=== PATIENT | male | born 1945 | race American Indian/Alaskan Native ===

== ENCOUNTER 2018-02-16 11:09 | Inpatient (IN) | payer MEDICARE, OTHER ==
[~2018-02-16] VITALS: Ht 170.2 cm; Wt 102.0 kg
[~2018-02-16 11:09] MED LIST: ACET-2119 PO; ALBU8.5H4 IH; ASPI81TA52 PO; CALC300T4 PO; CARV25TA PO; CHOL400T57 PO; CLOP75TA35 PO; DIO80T PO; FURO20TA4 PO; GABA-341 PO; HYDR-565 PO; INSU100C4 SQ; LANTUS SUBCUT; MAGN400T6 PO; MULT1TAB74 PO; PANT-47 PO; ROPI1TAB4 PO
[2018-02-16 12:16] LABS: BASOPHILS % (AUTO) 0.2 % (0-1); EOSINOPHILS # (AUTO) 0.4 X10'3 (0-0.9); EOSINOPHILS % (AUTO) 4.7 % (0-6); HEMATOCRIT 33.7 % (42.0-52.0); LYMPHOCYTES # (AUTO) 0.8 X10'3 (1.1-4.8); MEAN CORPUSCULAR HEMOGLOBIN 30.3 PG (27.0-31.0); MEAN CORPUSCULAR HGB CONC 32.6 % (33.0-36.5); MEAN CORPUSCULAR VOLUME 93.1 FL (78-98); MEAN PLATELET VOLUME 9.5 FL (7.4-10.4); MONOCYTES # (AUTO) 0.6 X10'3 (0-0.9); MONOCYTES % (AUTO) 7.1 % (2-12); NEUTROPHILS # (AUTO) 6.2 X10'3 (1.8-7.7); PLATELET COUNT 160 X10'3 (140-440); RED BLOOD COUNT 3.61 X10'6 (4.70-6.10); RED CELL DISTRIBUTION WIDTH 17.4 % (11.5-14.5); WHITE BLOOD COUNT 7.9 X10'3 (4.5-11.0)
[2018-02-16 12:28] LABS: INR 1.1 INR; PARTIAL THROMBOPLASTIN TIME 32 SECONDS (22-32); PROTHROMBIN TIME 11.6 SECONDS (9.0-12.0)
[2018-02-16 12:33] LABS: ALANINE AMINOTRANSFERASE 19 U/L (12-78); ALBUMIN 2.6 G/DL (3.4-5.0); ALBUMIN/GLOBULIN RATIO 0.6 (1.1-1.5); ALKALINE PHOSPHATASE 125 IU/L (46-116); ANION GAP 11 (8-16); ASPARTATE AMINO TRANSFERASE 10 U/L (10-37); BILIRUBIN,TOTAL 0.6 MG/DL (0.1-1.0); BLOOD UREA NITROGEN 59 MG/DL (7-18); CALCIUM 8.6 MG/DL (8.5-10.1); CHLORIDE 97 MMOL/L (99-107); CREATININE 5.38 MG/DL (0.60-1.10); GLUCOSE 390 MG/DL (70-104); POTASSIUM 3.7 MMOL/L (3.5-5.1); SODIUM 135 MMOL/L (135-145); TOTAL CARBON DIOXIDE 26.8 MMOL/L (24-32); eGFR 11 ML/MIN
[2018-02-16] MEDS ORDERED: HYDROcodone/acetaminophen 5mg/325mg tablet PO PRN (14:45)
[2018-02-16] MEDS ORDERED: ondansetron/PF 4mg/2ml inj IV PRN (14:45)
[2018-02-16] MEDS ORDERED: morphine 4 MG/ML inj SYRINge IV PRN ×2 (14:45)
[2018-02-16] MEDS ORDERED: acetaminophen 325mg tablet PO PRN (14:45)
[2018-02-16] MEDS ORDERED: dextrose ORAL solution 15 GM/59 ML bottle PO PRN ×2 (14:50)
[2018-02-16] MEDS ORDERED: dextrose 50%-water 50ml dispensing syringe IV PRN ×2 (14:50)
[2018-02-16] MEDS ORDERED: MESSAGE TO PHARMACY PO ONE (14:50)
[2018-02-16] MEDS ORDERED: glucagon, human recombinant 1mg kit SUBCUT PRN (14:50)
[2018-02-16] MEDS ORDERED: iohexol 350MG/ML 100ml bottle IV ONE (15:46)
[2018-02-16] MEDS ORDERED: iohexol 350 MG/ML 50ML vial IV ONE (15:46)
[2018-02-16] MEDS: piperacillin-tazo 2.25gm/50ml 50 ML IV SCH ×2 (17:47→19:11)
[2018-02-16] MEDS: insulin Lispro (HumaLOG) vial - multi-dose SQ SCH ×2 (18:02→22:09)
[2018-02-16 19:00] VITALS: BP 115/36
[2018-02-16] MEDS: docusate sod 100mg capsule PO SCH (19:11)
[2018-02-16] MEDS: heparin, porcine 5000 units/ml vial SQ SCH (19:11)
[2018-02-16] MEDS ORDERED: predniSONE 20 mg tablet PO ONE (21:00)
[2018-02-16] MEDS: insulin glargine (Lantus) pen - multi-dose SQ SCH (22:07)
[2018-02-16 23:00] VITALS: BP 105/29
[2018-02-17] MEDS: piperacillin-tazo 2.25gm/50ml 50 ML IV SCH ×4 (02:23→19:55)
[2018-02-17 03:00] VITALS: BP 125/34
[2018-02-17] MEDS ORDERED: predniSONE 20 mg tablet PO ONE ×2 (03:00→09:00)
[2018-02-17 05:04] LABS: BASOPHILS % (AUTO) 0 % (0-1); EOSINOPHILS % (AUTO) 0 % (0-6); HEMATOCRIT 33.1 % (42.0-52.0); HEMOGLOBIN 10.7 g/dl (14.0-17.9); LYMPHOCYTES # (AUTO) 0.4 X10'3 (1.1-4.8); LYMPHOCYTES % (AUTO) 5.2 % (21-51); MEAN CORPUSCULAR HEMOGLOBIN 29.9 PG (27.0-31.0); MEAN CORPUSCULAR HGB CONC 32.5 % (33.0-36.5); MEAN CORPUSCULAR VOLUME 92.2 FL (78-98); MEAN PLATELET VOLUME 9.6 FL (7.4-10.4); MONOCYTES # (AUTO) 0.1 X10'3 (0-0.9); MONOCYTES % (AUTO) 1.9 % (2-12); NEUTROPHILS # (AUTO) 6.8 X10'3 (1.8-7.7); NEUTROPHILS % (AUTO) 92.9 % (42-75); PLATELET COUNT 154 X10'3 (140-440); RED BLOOD COUNT 3.59 X10'6 (4.70-6.10); WHITE BLOOD COUNT 7.3 X10'3 (4.5-11.0)
[2018-02-17 05:42] LABS: ALANINE AMINOTRANSFERASE 19 U/L (12-78); ALBUMIN 2.5 G/DL (3.4-5.0); ALBUMIN/GLOBULIN RATIO 0.6 (1.1-1.5); ALKALINE PHOSPHATASE 108 IU/L (46-116); ANION GAP 15 (8-16); ASPARTATE AMINO TRANSFERASE 14 U/L (10-37); BILIRUBIN,TOTAL 0.5 MG/DL (0.1-1.0); BLOOD UREA NITROGEN 70 MG/DL (7-18); BUN/CREATININE RATIO 11.5 (5.4-32.0); CALCIUM 8.6 MG/DL (8.5-10.1); CHLORIDE 97 MMOL/L (99-107); GLUCOSE 200 MG/DL (70-104); PHOSPHORUS 3.6 MG/DL (2.3-4.5); POTASSIUM 3.8 MMOL/L (3.5-5.1); SODIUM 135 MMOL/L (135-145); TOTAL CARBON DIOXIDE 23.2 MMOL/L (24-32); TOTAL PROTEIN 6.9 G/DL (6.4-8.2); eGFR 9 ML/MIN
[2018-02-17 06:00] VITALS: BP 122/47
[2018-02-17] MEDS: docusate sod 100mg capsule PO SCH ×2 (06:51→19:56)
[2018-02-17] MEDS: heparin, porcine 5000 units/ml vial SQ SCH ×2 (07:12→19:55)
[2018-02-17] MEDS ORDERED: normal saline 1000ml 250 ML IV PRN (08:57)
[2018-02-17] MEDS ORDERED: diphenhydrAMINE 25mg capsule PO ONE (09:00)
[2018-02-17] MEDS ORDERED: heparin 1,000 units/ml 10ml inj IV ONE (09:00)
[2018-02-17] MEDS ORDERED: LIDOcaine 1% (10mg/ml) 2ml vial SQ ONE (09:00)
[2018-02-17] MEDS ORDERED: epoetin 20,000 units/ml inj IV ONE (09:00)
[2018-02-17] MEDS: insulin Lispro (HumaLOG) vial - multi-dose SQ SCH ×4 (09:33→23:02)
[2018-02-17 11:00] VITALS: BP 116/49
[2018-02-17 15:00] VITALS: BP 131/54
[2018-02-17 19:00] VITALS: BP 113/63
[2018-02-17] MEDS: lactobacillus rhamnosus 10,000 MMU CELLS/CAPSULE PO SCH (19:55)
[2018-02-17 23:00] VITALS: BP 125/32
[2018-02-17] MEDS: insulin glargine (Lantus) pen - multi-dose SQ SCH (23:01)
[2018-02-18] VITALS (7 sets, daily range): BP systolic 85–136; BP diastolic 26–72
[2018-02-18] MEDS: piperacillin-tazo 2.25gm/50ml 50 ML IV SCH ×4 (01:55→20:04)
[2018-02-18 05:18] LABS: BASOPHILS % (AUTO) 0.1 % (0-1); EOSINOPHILS # (AUTO) 0.1 X10'3 (0-0.9); EOSINOPHILS % (AUTO) 1.2 % (0-6); HEMATOCRIT 36.7 % (42.0-52.0); LYMPHOCYTES # (AUTO) 0.8 X10'3 (1.1-4.8); MEAN CORPUSCULAR HEMOGLOBIN 30.4 PG (27.0-31.0); MEAN CORPUSCULAR HGB CONC 32.7 % (33.0-36.5); MEAN CORPUSCULAR VOLUME 92.9 FL (78-98); MEAN PLATELET VOLUME 9.8 FL (7.4-10.4); MONOCYTES # (AUTO) 0.6 X10'3 (0-0.9); MONOCYTES % (AUTO) 7.7 % (2-12); NEUTROPHILS # (AUTO) 6.6 X10'3 (1.8-7.7); PLATELET COUNT 161 X10'3 (140-440); RED BLOOD COUNT 3.95 X10'6 (4.70-6.10); RED CELL DISTRIBUTION WIDTH 17.9 % (11.5-14.5); WHITE BLOOD COUNT 8.1 X10'3 (4.5-11.0)
[2018-02-18 05:51] LABS: ALANINE AMINOTRANSFERASE 25 U/L (12-78); ALBUMIN 2.5 G/DL (3.4-5.0); ALBUMIN/GLOBULIN RATIO 0.6 (1.1-1.5); ALKALINE PHOSPHATASE 104 IU/L (46-116); ANION GAP 13 (8-16); ASPARTATE AMINO TRANSFERASE 16 U/L (10-37); BILIRUBIN,TOTAL 0.5 MG/DL (0.1-1.0); BLOOD UREA NITROGEN 45 MG/DL (7-18); BUN/CREATININE RATIO 10.2 (5.4-32.0); CALCIUM 8.7 MG/DL (8.5-10.1); CHLORIDE 96 MMOL/L (99-107); CREATININE 4.42 MG/DL (0.60-1.10); GLUCOSE 316 MG/DL (70-104); MAGNESIUM 1.9 MG/DL (1.5-2.4); PHOSPHORUS 3.7 MG/DL (2.3-4.5); POTASSIUM 3.9 MMOL/L (3.5-5.1); SODIUM 134 MMOL/L (135-145); eGFR 13 ML/MIN
[2018-02-18] MEDS: heparin, porcine 5000 units/ml vial SQ SCH (07:57)
[2018-02-18] MEDS: docusate sod 100mg capsule PO SCH ×2 (08:00→20:00)
[2018-02-18] MEDS: insulin Lispro (HumaLOG) vial - multi-dose SQ SCH ×3 (08:01→18:47)
[2018-02-18] MEDS: lactobacillus rhamnosus 10,000 MMU CELLS/CAPSULE PO SCH ×2 (08:09→20:04)
[2018-02-18] MEDS: insulin glargine (Lantus) pen - multi-dose SQ SCH (21:44)
[2018-02-19] VITALS (11 sets, daily range): BP systolic 129–157; BP diastolic 34–118
[2018-02-19] MEDS: piperacillin-tazo 2.25gm/50ml 50 ML IV SCH ×4 (02:11→19:08)
[2018-02-19 05:26] LABS: BASOPHILS % (AUTO) 0.3 % (0-1); EOSINOPHILS # (AUTO) 0.5 X10'3 (0-0.9); EOSINOPHILS % (AUTO) 6.8 % (0-6); HEMATOCRIT 36.3 % (42.0-52.0); HEMOGLOBIN 11.7 g/dl (14.0-17.9); LYMPHOCYTES # (AUTO) 1.3 X10'3 (1.1-4.8); LYMPHOCYTES % (AUTO) 18.5 % (21-51); MEAN CORPUSCULAR HGB CONC 32.3 % (33.0-36.5); MEAN CORPUSCULAR VOLUME 92.8 FL (78-98); MEAN PLATELET VOLUME 9.4 FL (7.4-10.4); MONOCYTES # (AUTO) 0.7 X10'3 (0-0.9); MONOCYTES % (AUTO) 9.9 % (2-12); NEUTROPHILS # (AUTO) 4.6 X10'3 (1.8-7.7); NEUTROPHILS % (AUTO) 64.5 % (42-75); PLATELET COUNT 164 X10'3 (140-440); RED BLOOD COUNT 3.91 X10'6 (4.70-6.10); RED CELL DISTRIBUTION WIDTH 18.2 % (11.5-14.5); WHITE BLOOD COUNT 7.1 X10'3 (4.5-11.0)
[2018-02-19 05:43] LABS: ALANINE AMINOTRANSFERASE 25 U/L (12-78); ALBUMIN 2.3 G/DL (3.4-5.0); ALBUMIN/GLOBULIN RATIO 0.6 (1.1-1.5); ALKALINE PHOSPHATASE 101 IU/L (46-116); ANION GAP 11 (8-16); ASPARTATE AMINO TRANSFERASE 17 U/L (10-37); BILIRUBIN,TOTAL 0.5 MG/DL (0.1-1.0); BLOOD UREA NITROGEN 63 MG/DL (7-18); CALCIUM 8.1 MG/DL (8.5-10.1); CHLORIDE 98 MMOL/L (99-107); CREATININE 5.73 MG/DL (0.60-1.10); GLUCOSE 182 MG/DL (70-104); MAGNESIUM 2.1 MG/DL (1.5-2.4); PHOSPHORUS 5.1 MG/DL (2.3-4.5); POTASSIUM 3.7 MMOL/L (3.5-5.1); SODIUM 135 MMOL/L (135-145); TOTAL CARBON DIOXIDE 26.1 MMOL/L (24-32); TOTAL PROTEIN 6.4 G/DL (6.4-8.2); eGFR 10 ML/MIN
[2018-02-19] MEDS: docusate sod 100mg capsule PO SCH ×2 (08:00→19:17)
[2018-02-19] MEDS: lactobacillus rhamnosus 10,000 MMU CELLS/CAPSULE PO SCH ×2 (08:25→19:07)
[2018-02-19] MEDS: insulin Lispro (HumaLOG) vial - multi-dose SQ SCH ×2 (08:36→19:15)
[2018-02-19] MEDS ORDERED: fentaNYL/PF 50MCG/1 ML 2ML syringe IV PRN (09:25)
[2018-02-19] MEDS ORDERED: heparin 1,000 UNITS/NS 500ml 500 ML ICATH ONE (09:25)
[2018-02-19] MEDS ORDERED: LIDOcaine 1%/PF 5ML 10 MG/ML VIAL SQ ONE (09:25)
[2018-02-19] MEDS ORDERED: midazolam 2 mg/2 ml injection IV PRN (09:25)
[2018-02-19] MEDS ORDERED: diphenhydrAMINE 50 mg/ml inj IV ONE (09:25)
[2018-02-19 09:26] LABS: PLATELET ESTIMATE NORMAL
[2018-02-19 09:27] LABS: ANISOCYTOSIS 2+; ELLIPTOCYTES 1+; MICROCYTOSIS 1+; POLYCHROMASIA 1+
[2018-02-19] MEDS: hydrocortisone sod succ/PF 100mg/2ml inj. IV SCH (09:36)
[2018-02-19] MEDS ORDERED: LIDOcaine 1%/PF 5ML 10 MG/ML VIAL ONE (09:56)
[2018-02-19] MEDS ORDERED: iohexol 300mg/ml 100ml inj. ONE (09:56)
[2018-02-19] MEDS ORDERED: [UNRECOGNIZED DRUG - REMARK] SQ NR (10:00)
[2018-02-19] MEDS ORDERED: midazolam 2 mg/2 ml injection ONE (10:32)
[2018-02-19] MEDS ORDERED: fentaNYL/PF 50MCG/1 ML 2ML syringe ONE (10:33)
[2018-02-19] MEDS ORDERED: heparin 1,000 UNITS/NS 500ml 500 ML ONE (10:50)
[2018-02-19] MEDS: insulin glargine (Lantus) pen - multi-dose SQ SCH (21:49)
[2018-02-20] MEDS: piperacillin-tazo 2.25gm/50ml 50 ML IV SCH ×4 (01:33→20:20)
[2018-02-20 03:00] VITALS: BP 98/53
[2018-02-20 05:30] LABS: BASOPHILS % (AUTO) 0.4 % (0-1); EOSINOPHILS # (AUTO) 0.3 X10'3 (0-0.9); EOSINOPHILS % (AUTO) 3.9 % (0-6); HEMATOCRIT 34.8 % (42.0-52.0); HEMOGLOBIN 11.4 g/dl (14.0-17.9); LYMPHOCYTES # (AUTO) 1.1 X10'3 (1.1-4.8); LYMPHOCYTES % (AUTO) 13.9 % (21-51); MEAN CORPUSCULAR HEMOGLOBIN 30.1 PG (27.0-31.0); MEAN CORPUSCULAR HGB CONC 32.8 % (33.0-36.5); MEAN CORPUSCULAR VOLUME 91.8 FL (78-98); MEAN PLATELET VOLUME 9.6 FL (7.4-10.4); MONOCYTES # (AUTO) 0.8 X10'3 (0-0.9); MONOCYTES % (AUTO) 10.2 % (2-12); NEUTROPHILS # (AUTO) 5.4 X10'3 (1.8-7.7); NEUTROPHILS % (AUTO) 71.6 % (42-75); PLATELET COUNT 158 X10'3 (140-440); RED CELL DISTRIBUTION WIDTH 17.6 % (11.5-14.5); WHITE BLOOD COUNT 7.6 X10'3 (4.5-11.0)
[2018-02-20 05:55] LABS: ALANINE AMINOTRANSFERASE 24 U/L (12-78); ALBUMIN 2.2 G/DL (3.4-5.0); ALBUMIN/GLOBULIN RATIO 0.6 (1.1-1.5); ALKALINE PHOSPHATASE 100 IU/L (46-116); ANION GAP 15 (8-16); ASPARTATE AMINO TRANSFERASE 16 U/L (10-37); BILIRUBIN,TOTAL 0.5 MG/DL (0.1-1.0); BLOOD UREA NITROGEN 81 MG/DL (7-18); BUN/CREATININE RATIO 11.2 (5.4-32.0); CALCIUM 7.5 MG/DL (8.5-10.1); CHLORIDE 95 MMOL/L (99-107); CREATININE 7.22 MG/DL (0.60-1.10); GLUCOSE 333 MG/DL (70-104); MAGNESIUM 1.9 MG/DL (1.5-2.4); POTASSIUM 3.5 MMOL/L (3.5-5.1); SODIUM 134 MMOL/L (135-145); TOTAL CARBON DIOXIDE 23.8 MMOL/L (24-32); TOTAL PROTEIN 6.2 G/DL (6.4-8.2); eGFR 8 ML/MIN
[2018-02-20 06:57] VITALS: BP 119/49
[2018-02-20] MEDS ORDERED: heparin 1,000 units/ml 10ml inj IV ONE (08:00)
[2018-02-20] MEDS ORDERED: normal saline 1000ml 250 ML IV PRN (08:00)
[2018-02-20] MEDS: docusate sod 100mg capsule PO SCH ×2 (08:00→20:00)
[2018-02-20] MEDS ORDERED: LIDOcaine 1% (10mg/ml) 2ml vial SQ ONE (08:00)
[2018-02-20] MEDS: lactobacillus rhamnosus 10,000 MMU CELLS/CAPSULE PO SCH ×2 (08:01→20:19)
[2018-02-20] MEDS: insulin Lispro (HumaLOG) vial - multi-dose SQ SCH (08:06)
[2018-02-20] MEDS: hydrocortisone sod succ/PF 100mg/2ml inj. IV SCH (09:25)
[2018-02-20 11:00] VITALS: BP 104/35
[2018-02-20] MEDS ORDERED: valsartan 80mg tablet PO SCH (13:05)
[2018-02-20] MEDS ORDERED: acetaminophen 325mg tablet PO PRN (13:05)
[2018-02-20] MEDS ORDERED: calcium carbonate 500mg chew tablet PO PRN (13:05)
[2018-02-20] MEDS: aspirin 81mg tablet.DR PO SCH (13:21)
[2018-02-20] MEDS: cholecalciferol (vitamin D) 400 unit tablet PO SCH (13:21)
[2018-02-20] MEDS: clopidogrel 75mg tablet PO SCH (13:22)
[2018-02-20] MEDS ORDERED: albuterol 2.5 MG/3 ML nebule NEB PRN (13:25)
[2018-02-20] MEDS: losartan 50mg tablet PO SCH (14:23)
[2018-02-20] MEDS: magnesium oxide 400mg tablet PO SCH (16:52)
[2018-02-20 17:00] VITALS: BP 134/42
[2018-02-20] MEDS ORDERED: HYDROcodone/acetaminophen 10/325mg tab PO SCH (17:00)
[2018-02-20] MEDS ORDERED: non-formulary drug (Insulin Aspart (Novolog) 10 UNITS) SQ SCH (18:00)
[2018-02-20 19:00] VITALS: BP 125/35
[2018-02-20] MEDS: gabapentin 100mg capsule PO SCH (20:18)
[2018-02-20] MEDS: furosemide 20MG tablet PO SCH (20:18)
[2018-02-20] MEDS: ROPINIRole 1mg tablet PO SCH (20:19)
[2018-02-20] MEDS: carVEDilol 12.5mg tablet PO SCH (20:38)
[2018-02-20] MEDS ORDERED: insulin glargine (Lantus) pen - multi-dose SQ SCH (21:00)
[2018-02-20] MEDS: insulin glargine (Lantus) pen - multi-dose SQ SCH (21:49)
[2018-02-20 23:00] VITALS: BP 101/77
[2018-02-21] MEDS: magnesium oxide 400mg tablet PO SCH ×3 (00:05→16:00)
[2018-02-21] MEDS: piperacillin-tazo 2.25gm/50ml 50 ML IV SCH ×4 (02:21→20:18)
[2018-02-21 03:00] VITALS: BP 97/61
[2018-02-21 05:04] LABS: BASOPHILS # (AUTO) 0.1 X10'3 (0-0.2); BASOPHILS % (AUTO) 0.6 % (0-1); EOSINOPHILS # (AUTO) 0.8 X10'3 (0-0.9); HEMATOCRIT 35.5 % (42.0-52.0); LYMPHOCYTES # (AUTO) 1.5 X10'3 (1.1-4.8); LYMPHOCYTES % (AUTO) 16.7 % (21-51); MEAN CORPUSCULAR HEMOGLOBIN 31.3 PG (27.0-31.0); MEAN CORPUSCULAR HGB CONC 33.8 % (33.0-36.5); MEAN CORPUSCULAR VOLUME 92.4 FL (78-98); MEAN PLATELET VOLUME 8.9 FL (7.4-10.4); MONOCYTES # (AUTO) 0.6 X10'3 (0-0.9); MONOCYTES % (AUTO) 7.1 % (2-12); NEUTROPHILS # (AUTO) 5.8 X10'3 (1.8-7.7); NEUTROPHILS % (AUTO) 66.6 % (42-75); PLATELET COUNT 159 X10'3 (140-440); RED BLOOD COUNT 3.85 X10'6 (4.70-6.10); RED CELL DISTRIBUTION WIDTH 18.3 % (11.5-14.5); WHITE BLOOD COUNT 8.7 X10'3 (4.5-11.0)
[2018-02-21 05:27] LABS: ALANINE AMINOTRANSFERASE 24 U/L (12-78); ALBUMIN 2.4 G/DL (3.4-5.0); ALBUMIN/GLOBULIN RATIO 0.5 (1.1-1.5); ALKALINE PHOSPHATASE 85 IU/L (46-116); ANION GAP 11 (8-16); ASPARTATE AMINO TRANSFERASE 14 U/L (10-37); BILIRUBIN,TOTAL 0.6 MG/DL (0.1-1.0); BLOOD UREA NITROGEN 47 MG/DL (7-18); CALCIUM 7.8 MG/DL (8.5-10.1); CHLORIDE 95 MMOL/L (99-107); CREATININE 5.22 MG/DL (0.60-1.10); GLUCOSE 204 MG/DL (70-104); MAGNESIUM 1.9 MG/DL (1.5-2.4); PHOSPHORUS 5.1 MG/DL (2.3-4.5); POTASSIUM 3.5 MMOL/L (3.5-5.1); SODIUM 134 MMOL/L (135-145); TOTAL CARBON DIOXIDE 27.6 MMOL/L (24-32); eGFR 11 ML/MIN
[2018-02-21 05:30] VITALS: BP 91/27
[2018-02-21 06:50] LABS: LARGE PLATELETS FEW; PLATELET ESTIMATE NORMAL
[2018-02-21] MEDS: losartan 50mg tablet PO SCH (08:00)
[2018-02-21] MEDS: carVEDilol 12.5mg tablet PO SCH ×2 (08:00→20:19)
[2018-02-21] MEDS: furosemide 20MG tablet PO SCH ×2 (08:00→20:19)
[2018-02-21] MEDS: lactobacillus rhamnosus 10,000 MMU CELLS/CAPSULE PO SCH ×2 (08:23→20:18)
[2018-02-21] MEDS: pantoprazole 40mg Tablet.DR PO SCH (08:23)
[2018-02-21] MEDS: clopidogrel 75mg tablet PO SCH (08:23)
[2018-02-21] MEDS: multivitamins, therapeutics tablet PO SCH (08:23)
[2018-02-21] MEDS: aspirin 81mg tablet.DR PO SCH (08:26)
[2018-02-21] MEDS: gabapentin 100mg capsule PO SCH ×3 (08:26→20:18)
[2018-02-21] MEDS: docusate sod 100mg capsule PO SCH ×2 (08:26→18:54)
[2018-02-21] MEDS: insulin Lispro (HumaLOG) vial - multi-dose SQ SCH ×3 (08:32→18:46)
[2018-02-21] MEDS: cholecalciferol (vitamin D) 400 unit tablet PO SCH (08:41)
[2018-02-21] MEDS: hydrocortisone sod succ/PF 100mg/2ml inj. IV SCH (09:25)
[2018-02-21 11:00] VITALS: BP 91/27
[2018-02-21 13:58] VITALS: BP 140/49
[2018-02-21 15:00] VITALS: BP 151/61
[2018-02-21] MEDS: ROPINIRole 1mg tablet PO SCH (20:19)
[2018-02-21] MEDS: insulin glargine (Lantus) pen - multi-dose SQ SCH (21:43)
[2018-02-22] MEDS: piperacillin-tazo 2.25gm/50ml 50 ML IV SCH ×4 (00:54→21:25)
[2018-02-22] MEDS: magnesium oxide 400mg tablet PO SCH ×3 (00:54→16:37)
[2018-02-22 06:57] VITALS: BP 99/53
[2018-02-22] MEDS: losartan 50mg tablet PO SCH (08:00)
[2018-02-22] MEDS: docusate sod 100mg capsule PO SCH ×2 (08:00→20:00)
[2018-02-22] MEDS: carVEDilol 12.5mg tablet PO SCH ×2 (08:00→21:27)
[2018-02-22] MEDS: furosemide 20MG tablet PO SCH ×2 (08:00→21:28)
[2018-02-22] MEDS: LIDOcaine 1% (10mg/ml) 2ml vial SQ ONE ×2 (08:00→08:54)
[2018-02-22] MEDS ORDERED: normal saline 1000ml 250 ML IV PRN (08:00)
[2018-02-22] MEDS ORDERED: heparin 1,000 units/ml 10ml inj IV ONE (08:00)
[2018-02-22] MEDS: multivitamins, therapeutics tablet PO SCH (08:51)
[2018-02-22] MEDS: gabapentin 100mg capsule PO SCH ×3 (08:51→21:28)
[2018-02-22] MEDS: emollient combination-Eucerin 250 ML LOTION TP SCH (08:51)
[2018-02-22] MEDS: cholecalciferol (vitamin D) 400 unit tablet PO SCH (08:52)
[2018-02-22] MEDS: aspirin 81mg tablet.DR PO SCH (08:53)
[2018-02-22] MEDS: lactobacillus rhamnosus 10,000 MMU CELLS/CAPSULE PO SCH ×2 (08:53→21:27)
[2018-02-22] MEDS: pantoprazole 40mg Tablet.DR PO SCH (08:53)
[2018-02-22] MEDS: clopidogrel 75mg tablet PO SCH (09:06)
[2018-02-22] MEDS: insulin Lispro (HumaLOG) vial - multi-dose SQ SCH ×3 (09:16→19:28)
[2018-02-22] MEDS: hydrocortisone sod succ/PF 100mg/2ml inj. IV SCH (09:25)
[2018-02-22 12:06] VITALS: BP 114/46
[2018-02-22 15:00] VITALS: BP 104/35
[2018-02-22 19:00] VITALS: BP 114/60
[2018-02-22] MEDS: ROPINIRole 1mg tablet PO SCH (21:27)
[2018-02-22] MEDS: insulin glargine (Lantus) pen - multi-dose SQ SCH (21:42)
[2018-02-22 23:00] VITALS: BP 129/52
[2018-02-23] MEDS: magnesium oxide 400mg tablet PO SCH ×3 (01:00→15:58)
[2018-02-23] MEDS: piperacillin-tazo 2.25gm/50ml 50 ML IV SCH ×4 (01:09→19:44)
[2018-02-23 03:00] VITALS: BP 108/48
[2018-02-23 05:29] LABS: BASOPHILS % (AUTO) 0.5 % (0-1); EOSINOPHILS # (AUTO) 0.6 X10'3 (0-0.9); EOSINOPHILS % (AUTO) 7.3 % (0-6); HEMATOCRIT 33.4 % (42.0-52.0); HEMOGLOBIN 10.9 g/dl (14.0-17.9); LYMPHOCYTES # (AUTO) 1.1 X10'3 (1.1-4.8); LYMPHOCYTES % (AUTO) 13.1 % (21-51); MEAN CORPUSCULAR HEMOGLOBIN 30.2 PG (27.0-31.0); MEAN CORPUSCULAR HGB CONC 32.6 % (33.0-36.5); MEAN CORPUSCULAR VOLUME 92.8 FL (78-98); MEAN PLATELET VOLUME 9.2 FL (7.4-10.4); MONOCYTES # (AUTO) 0.6 X10'3 (0-0.9); NEUTROPHILS # (AUTO) 5.8 X10'3 (1.8-7.7); NEUTROPHILS % (AUTO) 72.1 % (42-75); PLATELET COUNT 142 X10'3 (140-440); RED CELL DISTRIBUTION WIDTH 18.4 % (11.5-14.5); WHITE BLOOD COUNT 8.1 X10'3 (4.5-11.0)
[2018-02-23 05:36] LABS: ALBUMIN 2.2 G/DL (3.4-5.0); ANION GAP 7 (8-16); BLOOD UREA NITROGEN 35 MG/DL (7-18); BUN/CREATININE RATIO 7.7 (5.4-32.0); CALCIUM 7.8 MG/DL (8.5-10.1); CHLORIDE 96 MMOL/L (99-107); CREATININE 4.55 MG/DL (0.60-1.10); GLUCOSE 116 MG/DL (70-104); SODIUM 132 MMOL/L (135-145); TOTAL CARBON DIOXIDE 29.1 MMOL/L (24-32); eGFR 13 ML/MIN
[2018-02-23 06:00] VITALS: BP 107/61
[2018-02-23] MEDS: multivitamins, therapeutics tablet PO SCH (07:26)
[2018-02-23] MEDS: aspirin 81mg tablet.DR PO SCH (07:27)
[2018-02-23] MEDS: lactobacillus rhamnosus 10,000 MMU CELLS/CAPSULE PO SCH ×2 (07:27→19:43)
[2018-02-23] MEDS: clopidogrel 75mg tablet PO SCH (07:27)
[2018-02-23] MEDS: furosemide 20MG tablet PO SCH ×2 (07:27→19:45)
[2018-02-23] MEDS: pantoprazole 40mg Tablet.DR PO SCH (07:27)
[2018-02-23] MEDS: gabapentin 100mg capsule PO SCH ×3 (07:27→21:00)
[2018-02-23] MEDS: cholecalciferol (vitamin D) 400 unit tablet PO SCH (07:29)
[2018-02-23] MEDS: carVEDilol 12.5mg tablet PO SCH ×2 (07:29→19:45)
[2018-02-23] MEDS: emollient combination-Eucerin 250 ML LOTION TP SCH (07:30)
[2018-02-23] MEDS: docusate sod 100mg capsule PO SCH ×2 (08:00→19:44)
[2018-02-23] MEDS: insulin Lispro (HumaLOG) vial - multi-dose SQ SCH ×2 (08:38→13:30)
[2018-02-23 09:19] LABS: ANISOCYTOSIS 2+; PLATELET ESTIMATE NORMAL
[2018-02-23 09:20] LABS: ELLIPTOCYTES FEW; POIKILOCYTOSIS 1+
[2018-02-23] MEDS: losartan 50mg tablet PO SCH (09:28)
[2018-02-23 11:00] VITALS: BP 97/32
[2018-02-23 15:00] VITALS: BP 113/51
[2018-02-23 19:00] VITALS: BP 83/77
[2018-02-23] MEDS: insulin glargine (Lantus) pen - multi-dose SQ SCH (21:00)
[2018-02-23] MEDS: ROPINIRole 1mg tablet PO SCH (21:00)
[2018-02-23 23:00] VITALS: BP 85/49
[2018-02-24] MEDS: magnesium oxide 400mg tablet PO SCH ×3 (01:27→16:33)
[2018-02-24] MEDS: piperacillin-tazo 2.25gm/50ml 50 ML IV SCH ×4 (01:27→20:32)
[2018-02-24 03:00] VITALS: BP 101/52
[2018-02-24 06:00] VITALS: BP 103/52
[2018-02-24 07:21] LABS: BASOPHILS # (AUTO) 0.1 X10'3 (0-0.2); BASOPHILS % (AUTO) 1.3 % (0-1); EOSINOPHILS # (AUTO) 0.7 X10'3 (0-0.9); EOSINOPHILS % (AUTO) 8.1 % (0-6); HEMATOCRIT 32.3 % (42.0-52.0); HEMOGLOBIN 10.8 g/dl (14.0-17.9); LYMPHOCYTES # (AUTO) 1.1 X10'3 (1.1-4.8); LYMPHOCYTES % (AUTO) 13.7 % (21-51); MEAN CORPUSCULAR HEMOGLOBIN 30.9 PG (27.0-31.0); MEAN CORPUSCULAR HGB CONC 33.4 % (33.0-36.5); MEAN CORPUSCULAR VOLUME 92.5 FL (78-98); MEAN PLATELET VOLUME 9.3 FL (7.4-10.4); MONOCYTES # (AUTO) 0.5 X10'3 (0-0.9); MONOCYTES % (AUTO) 6.3 % (2-12); NEUTROPHILS # (AUTO) 5.7 X10'3 (1.8-7.7); NEUTROPHILS % (AUTO) 70.6 % (42-75); PLATELET COUNT 133 X10'3 (140-440); RED BLOOD COUNT 3.49 X10'6 (4.70-6.10); RED CELL DISTRIBUTION WIDTH 17.2 % (11.5-14.5); WHITE BLOOD COUNT 8.1 X10'3 (4.5-11.0)
[2018-02-24 07:29] LABS: ALBUMIN 2.1 G/DL (3.4-5.0); ANION GAP 10 (8-16); BLOOD UREA NITROGEN 48 MG/DL (7-18); BUN/CREATININE RATIO 8.2 (5.4-32.0); CALCIUM 7.7 MG/DL (8.5-10.1); CHLORIDE 92 MMOL/L (99-107); CREATININE 5.88 MG/DL (0.60-1.10); GLUCOSE 134 MG/DL (70-104); POTASSIUM 4.1 MMOL/L (3.5-5.1); SODIUM 128 MMOL/L (135-145); TOTAL CARBON DIOXIDE 26.4 MMOL/L (24-32); eGFR 10 ML/MIN
[2018-02-24] MEDS: pantoprazole 40mg Tablet.DR PO SCH (07:42)
[2018-02-24] MEDS: cholecalciferol (vitamin D) 400 unit tablet PO SCH (07:43)
[2018-02-24] MEDS: gabapentin 100mg capsule PO SCH ×3 (07:43→20:33)
[2018-02-24] MEDS: aspirin 81mg tablet.DR PO SCH (07:43)
[2018-02-24] MEDS: multivitamins, therapeutics tablet PO SCH (07:43)
[2018-02-24] MEDS: clopidogrel 75mg tablet PO SCH (07:43)
[2018-02-24] MEDS: lactobacillus rhamnosus 10,000 MMU CELLS/CAPSULE PO SCH ×2 (07:43→20:32)
[2018-02-24] MEDS: docusate sod 100mg capsule PO SCH ×2 (07:50→20:32)
[2018-02-24] MEDS: losartan 50mg tablet PO SCH (07:51)
[2018-02-24] MEDS: carVEDilol 12.5mg tablet PO SCH ×2 (07:51→20:32)
[2018-02-24] MEDS: furosemide 20MG tablet PO SCH ×2 (07:52→20:32)
[2018-02-24] MEDS ORDERED: LIDOcaine 1% (10mg/ml) 2ml vial SQ ONE (08:00)
[2018-02-24] MEDS ORDERED: normal saline 1000ml 250 ML IV PRN (08:00)
[2018-02-24] MEDS ORDERED: epoetin 20,000 units/ml inj IV ONE (08:00)
[2018-02-24] MEDS ORDERED: heparin 1,000 units/ml 10ml inj IV ONE (08:00)
[2018-02-24] MEDS: insulin Lispro (HumaLOG) vial - multi-dose SQ SCH ×4 (08:02→20:48)
[2018-02-24] MEDS ORDERED: albumin (human) 25% 100ml IV 100 ML IV PRN (09:40)
[2018-02-24] MEDS: emollient combination-Eucerin 250 ML LOTION TP SCH (09:48)
[2018-02-24 11:00] VITALS: BP 106/53
[2018-02-24 11:10] LABS: HBSAG SCREEN Negative (Negative)
[2018-02-24 15:00] VITALS: BP 118/64
[2018-02-24 19:00] VITALS: BP 106/58
[2018-02-24] MEDS: ROPINIRole 1mg tablet PO SCH (20:33)
[2018-02-24] MEDS: insulin glargine (Lantus) pen - multi-dose SQ SCH (20:42)
[2018-02-24 23:00] VITALS: BP 97/50
[2018-02-25] MEDS: piperacillin-tazo 2.25gm/50ml 50 ML IV SCH ×4 (02:45→19:55)
[2018-02-25 03:00] VITALS: BP 101/56
[2018-02-25 07:00] VITALS: BP 102/60
[2018-02-25] MEDS: cholecalciferol (vitamin D) 400 unit tablet PO SCH (07:27)
[2018-02-25] MEDS: multivitamins, therapeutics tablet PO SCH (07:28)
[2018-02-25] MEDS: pantoprazole 40mg Tablet.DR PO SCH (07:28)
[2018-02-25] MEDS: magnesium oxide 400mg tablet PO SCH ×3 (07:28→16:29)
[2018-02-25] MEDS: lactobacillus rhamnosus 10,000 MMU CELLS/CAPSULE PO SCH ×2 (07:28→19:57)
[2018-02-25] MEDS: carVEDilol 12.5mg tablet PO SCH ×2 (07:28→19:47)
[2018-02-25] MEDS: gabapentin 100mg capsule PO SCH ×3 (07:28→21:07)
[2018-02-25] MEDS: aspirin 81mg tablet.DR PO SCH (07:28)
[2018-02-25] MEDS: furosemide 20MG tablet PO SCH ×2 (07:29→19:47)
[2018-02-25] MEDS: losartan 50mg tablet PO SCH (07:29)
[2018-02-25] MEDS: docusate sod 100mg capsule PO SCH ×2 (07:29→20:00)
[2018-02-25] MEDS: clopidogrel 75mg tablet PO SCH (07:29)
[2018-02-25] MEDS: emollient combination-Eucerin 250 ML LOTION TP SCH (07:31)
[2018-02-25 07:38] LABS: BASOPHILS # (AUTO) 0.1 X10'3 (0-0.2); BASOPHILS % (AUTO) 1.6 % (0-1); EOSINOPHILS # (AUTO) 0.4 X10'3 (0-0.9); EOSINOPHILS % (AUTO) 4.8 % (0-6); HEMATOCRIT 32.2 % (42.0-52.0); HEMOGLOBIN 10.7 g/dl (14.0-17.9); LYMPHOCYTES # (AUTO) 0.9 X10'3 (1.1-4.8); LYMPHOCYTES % (AUTO) 11.4 % (21-51); MEAN CORPUSCULAR HEMOGLOBIN 30.8 PG (27.0-31.0); MEAN CORPUSCULAR HGB CONC 33.2 % (33.0-36.5); MEAN CORPUSCULAR VOLUME 92.6 FL (78-98); MONOCYTES # (AUTO) 0.7 X10'3 (0-0.9); MONOCYTES % (AUTO) 8.7 % (2-12); NEUTROPHILS # (AUTO) 6.2 X10'3 (1.8-7.7); NEUTROPHILS % (AUTO) 73.5 % (42-75); PLATELET COUNT 138 X10'3 (140-440); RED BLOOD COUNT 3.48 X10'6 (4.70-6.10); RED CELL DISTRIBUTION WIDTH 16.7 % (11.5-14.5); WHITE BLOOD COUNT 8.3 X10'3 (4.5-11.0)
[2018-02-25 07:47] LABS: ALBUMIN 2.4 G/DL (3.4-5.0); ANION GAP 5 (8-16); BLOOD UREA NITROGEN 34 MG/DL (7-18); BUN/CREATININE RATIO 7.3 (5.4-32.0); CALCIUM 7.9 MG/DL (8.5-10.1); CHLORIDE 95 MMOL/L (99-107); CREATININE 4.67 MG/DL (0.60-1.10); GLUCOSE 76 MG/DL (70-104); POTASSIUM 3.8 MMOL/L (3.5-5.1); SODIUM 130 MMOL/L (135-145); TOTAL CARBON DIOXIDE 29.7 MMOL/L (24-32); eGFR 12 ML/MIN
[2018-02-25] MEDS: insulin Lispro (HumaLOG) vial - multi-dose SQ SCH (08:39)
[2018-02-25 09:03] LABS: ANISOCYTOSIS 1+; PLATELET ESTIMATE DECREASED; TOTAL CELLS COUNTED 100
[2018-02-25 09:05] LABS: ELLIPTOCYTES 1+; POIKILOCYTOSIS FEW
[2018-02-25 11:00] VITALS: BP 117/64
[2018-02-25 15:00] VITALS: BP 107/53
[2018-02-25 19:00] VITALS: BP 94/48
[2018-02-25] MEDS: insulin glargine (Lantus) pen - multi-dose SQ SCH (21:00)
[2018-02-25] MEDS: ROPINIRole 1mg tablet PO SCH (21:07)
[2018-02-25 23:00] VITALS: BP 90/52
[2018-02-26] MEDS: magnesium oxide 400mg tablet PO SCH ×2 (01:01→07:18)
[2018-02-26] MEDS: piperacillin-tazo 2.25gm/50ml 50 ML IV SCH ×3 (01:04→13:42)
[2018-02-26 03:00] VITALS: BP 97/51
[2018-02-26 05:44] LABS: BASOPHILS # (AUTO) 0.1 X10'3 (0-0.2); BASOPHILS % (AUTO) 0.9 % (0-1); EOSINOPHILS # (AUTO) 0.6 X10'3 (0-0.9); EOSINOPHILS % (AUTO) 7.7 % (0-6); HEMATOCRIT 32.3 % (42.0-52.0); HEMOGLOBIN 10.7 g/dl (14.0-17.9); LYMPHOCYTES # (AUTO) 1.1 X10'3 (1.1-4.8); LYMPHOCYTES % (AUTO) 14.4 % (21-51); MEAN CORPUSCULAR HGB CONC 33.1 % (33.0-36.5); MEAN CORPUSCULAR VOLUME 93.7 FL (78-98); MEAN PLATELET VOLUME 9.7 FL (7.4-10.4); MONOCYTES # (AUTO) 0.5 X10'3 (0-0.9); MONOCYTES % (AUTO) 7.2 % (2-12); NEUTROPHILS # (AUTO) 5.2 X10'3 (1.8-7.7); NEUTROPHILS % (AUTO) 69.8 % (42-75); PLATELET COUNT 117 X10'3 (140-440); RED BLOOD COUNT 3.45 X10'6 (4.70-6.10); RED CELL DISTRIBUTION WIDTH 17.1 % (11.5-14.5); WHITE BLOOD COUNT 7.5 X10'3 (4.5-11.0)
[2018-02-26 05:49] LABS: INR 1.1 INR; PARTIAL THROMBOPLASTIN TIME 34 SECONDS (22-32); PROTHROMBIN TIME 11.1 SECONDS (9.0-12.0)
[2018-02-26 05:56] LABS: ANION GAP 10 (8-16); CHLORIDE 93 MMOL/L (99-107); POTASSIUM 3.8 MMOL/L (3.5-5.1); SODIUM 130 MMOL/L (135-145)
[2018-02-26 06:25] LABS: ALANINE AMINOTRANSFERASE 24 U/L (12-78); ALBUMIN 2.3 G/DL (3.4-5.0); ALBUMIN/GLOBULIN RATIO 0.6 (1.1-1.5); ALKALINE PHOSPHATASE 71 IU/L (46-116); ASPARTATE AMINO TRANSFERASE 16 U/L (10-37); BILIRUBIN,TOTAL 0.5 MG/DL (0.1-1.0); BLOOD UREA NITROGEN 40 MG/DL (7-18); CREATININE 5.74 MG/DL (0.60-1.10); GLUCOSE 132 MG/DL (70-104); MAGNESIUM 2.3 MG/DL (1.5-2.4); PHOSPHORUS 5.6 MG/DL (2.3-4.5); TOTAL PROTEIN 6.4 G/DL (6.4-8.2); eGFR 10 ML/MIN
[2018-02-26 07:00] VITALS: BP 89/59
[2018-02-26] MEDS: clopidogrel 75mg tablet PO SCH (07:18)
[2018-02-26] MEDS: multivitamins, therapeutics tablet PO SCH (07:18)
[2018-02-26] MEDS: cholecalciferol (vitamin D) 400 unit tablet PO SCH (07:18)
[2018-02-26] MEDS: aspirin 81mg tablet.DR PO SCH (07:18)
[2018-02-26] MEDS: furosemide 20MG tablet PO SCH (07:19)
[2018-02-26] MEDS: lactobacillus rhamnosus 10,000 MMU CELLS/CAPSULE PO SCH (07:19)
[2018-02-26] MEDS: gabapentin 100mg capsule PO SCH ×2 (07:19→13:16)
[2018-02-26] MEDS: pantoprazole 40mg Tablet.DR PO SCH (07:19)
[2018-02-26] MEDS: docusate sod 100mg capsule PO SCH (07:26)
[2018-02-26] MEDS: carVEDilol 12.5mg tablet PO SCH (07:26)
[2018-02-26] MEDS: emollient combination-Eucerin 250 ML LOTION TP SCH (07:27)
[2018-02-26] MEDS: losartan 50mg tablet PO SCH (07:27)
[2018-02-26] MEDS: insulin Lispro (HumaLOG) vial - multi-dose SQ SCH ×2 (08:38→13:19)
[2018-02-26 11:00] VITALS: BP 106/38
[2018-02-26] MEDS ORDERED: LOSA50TA21 PO (13:39)
[2018-02-26 15:00] VITALS: BP 122/34
== END 2018-02-26 17:00 | disposition home or self-care (01) | DRG 602 ==
LOC: ER 11:09 → ED HOLD 14:45 → OBSVTOIN 14:45 → PCU 3S 15:53
PROVIDERS: ADMIT Internal Medicine Critical Care Medicine; ATTEND Internal Medicine Critical Care Medicine
PROC: B42G1ZZ Computerized Tomography (CT Scan) of Left Lower Extremity Arteries using Low Osmolar Contrast (ICD-10-PCS; principal; 2018-02-17)
PROC: B3201ZZ Computerized Tomography (CT Scan) of Thoracic Aorta using Low Osmolar Contrast (ICD-10-PCS; 2018-02-17)
PROC: B42H1ZZ Computerized Tomography (CT Scan) of Bilateral Lower Extremity Arteries using Low Osmolar Contrast (ICD-10-PCS; 2018-02-17)
PROC: 5A1D70Z Performance of Urinary Filtration, Intermittent, Less than 6 Hours Per Day (ICD-10-PCS; 2018-02-17)
PROC: B41G1ZZ Fluoroscopy of Left Lower Extremity Arteries using Low Osmolar Contrast (ICD-10-PCS; 2018-02-19)
PROC: 5A1D70Z Performance of Urinary Filtration, Intermittent, Less than 6 Hours Per Day (ICD-10-PCS; 2018-02-20)
PROC: 5A1D70Z Performance of Urinary Filtration, Intermittent, Less than 6 Hours Per Day (ICD-10-PCS; 2018-02-22)
PROC: 5A1D70Z Performance of Urinary Filtration, Intermittent, Less than 6 Hours Per Day (ICD-10-PCS; 2018-02-24)
DX: L03.032 Cellulitis of left toe (principal); N18.6 End stage renal disease; I13.2 Hypertensive heart and chronic kidney disease with heart failure and with stage 5 chronic kidney disease, or end stage renal disease; E11.52 Type 2 diabetes mellitus with diabetic peripheral angiopathy with gangrene; I96 Gangrene, not elsewhere classified; E11.22 Type 2 diabetes mellitus with diabetic chronic kidney disease; I50.9 Heart failure, unspecified; I70.202 Unspecified atherosclerosis of native arteries of extremities, left leg; E78.00 Pure hypercholesterolemia, unspecified; E78.5 Hyperlipidemia, unspecified; G47.30 Sleep apnea, unspecified; I25.10 Atherosclerotic heart disease of native coronary artery without angina pectoris; M25.511 Pain in right shoulder; J44.9 Chronic obstructive pulmonary disease, unspecified; I48.2 Chronic atrial fibrillation; Z99.2 Dependence on renal dialysis; Z89.611 Acquired absence of right leg above knee; Z89.422 Acquired absence of other left toe(s); Z88.1 Allergy status to other antibiotic agents; Z88.8 Allergy status to other drugs, medicaments and biological substances; Z91.041 Radiographic dye allergy status; Z79.02 Long term (current) use of antithrombotics/antiplatelets; Z79.4 Long term (current) use of insulin; Z79.82 Long term (current) use of aspirin; Z79.899 Other long term (current) drug therapy; Z79.01 Long term (current) use of anticoagulants; Z86.711 Personal history of pulmonary embolism; Z82.49 Family history of ischemic heart disease and other diseases of the circulatory system
CPT/HCPCS: 36245; 36415; 71045; 73030; 75635; 75710; 80048; 80053; 82948; 83036; 83605; 83735; 83880; 84100; 84484; 85025; 85610; 85730; 87040; 87070; 87340; 93005; 93922; 93926; 93971; 97110; 97162; 97530; 99152; 99153; A4620; A6212; A6213; A6219; A6402; A6449; C1769; C1894; G0257; J0885; J1200; J1644; J1720; J1815; J2001; J2250; J2543; J3010; J3490; J7030; J7512; P9047; Q0163; Q9967

== ENCOUNTER 2018-05-04 16:57 | Inpatient (IN) | payer MEDICARE, OTHER ==
[~2018-05-04] VITALS: Ht 170.2 cm; Wt 91.3 kg
[~2018-05-04 16:57] MED LIST changes: -DIO80T PO; +HYDR-4353 PO; -HYDR-565 PO; +LOSA50TA21 PO
[2018-05-04] MEDS ORDERED: vancomycin inj 1,000 MG in normal saline 250ml IV soln 250 ML IV STA (21:04)
[2018-05-04] MEDS ORDERED: vancomycin/NS 1 GM ADD-VANTAGE 250 ML IV STA (21:08)
[2018-05-04 21:09] LABS: BASOPHILS # (AUTO) 0.1 X10'3 (0-0.2); BASOPHILS % (AUTO) 0.9 % (0-1); EOSINOPHILS % (AUTO) 11.7 % (0-6); HEMATOCRIT 35.5 % (42.0-52.0); HEMOGLOBIN 11.3 g/dl (14.0-17.9); LYMPHOCYTES # (AUTO) 1.1 X10'3 (1.1-4.8); LYMPHOCYTES % (AUTO) 13.3 % (21-51); MEAN CORPUSCULAR HEMOGLOBIN 28.6 PG (27.0-31.0); MEAN CORPUSCULAR HGB CONC 31.8 % (33.0-36.5); MEAN CORPUSCULAR VOLUME 89.9 FL (78-98); MONOCYTES # (AUTO) 0.6 X10'3 (0-0.9); MONOCYTES % (AUTO) 7.5 % (2-12); NEUTROPHILS # (AUTO) 5.6 X10'3 (1.8-7.7); NEUTROPHILS % (AUTO) 66.6 % (42-75); PLATELET COUNT 264 X10'3 (140-440); RED BLOOD COUNT 3.95 X10'6 (4.70-6.10); RED CELL DISTRIBUTION WIDTH 17.6 % (11.5-14.5); WHITE BLOOD COUNT 8.4 X10'3 (4.5-11.0)
[2018-05-04 21:25] LABS: ALANINE AMINOTRANSFERASE 17 U/L (12-78); ALBUMIN 2.3 G/DL (3.4-5.0); ALBUMIN/GLOBULIN RATIO 0.5 (1.1-1.5); ALKALINE PHOSPHATASE 205 IU/L (46-116); ANION GAP 12 (8-16); ASPARTATE AMINO TRANSFERASE 14 U/L (10-37); BILIRUBIN,TOTAL 0.4 MG/DL (0.1-1.0); BLOOD UREA NITROGEN 65 MG/DL (7-18); CALCIUM 8.6 MG/DL (8.5-10.1); CHLORIDE 93 MMOL/L (99-107); CREATINE KINASE 45 U/L (39-308); CREATININE 5.92 MG/DL (0.60-1.10); LIPASE 181 U/L (73-393); MAGNESIUM 1.9 MG/DL (1.5-2.4); POTASSIUM 3.5 MMOL/L (3.5-5.1); SODIUM 133 MMOL/L (135-145); TOTAL CARBON DIOXIDE 28.5 MMOL/L (24-32); TOTAL PROTEIN 7.3 G/DL (6.4-8.2); eGFR 9 ML/MIN
[2018-05-04 21:34] LABS: PARTIAL THROMBOPLASTIN TIME 32 SECONDS (22-32); PROTHROMBIN TIME 10.7 SECONDS (9.0-12.0)
[2018-05-04 21:35] LABS: GLUCOSE 456 MG/DL (70-104)
[2018-05-04] MEDS ORDERED: insulin regular, human 10 units/0.1 ml syringe IV ONE (21:40)
[2018-05-05] MEDS ORDERED: piperacillin/tazo 3.375gm/50ml 50 ML IV SCH
[2018-05-05] MEDS ORDERED: MESSAGE TO PHARMACY PO ONE (00:40)
[2018-05-05] MEDS ORDERED: glucagon, human recombinant 1mg kit SUBCUT PRN (00:40)
[2018-05-05] MEDS ORDERED: acetaminophen 325mg tablet PO PRN ×2 (00:40)
[2018-05-05] MEDS ORDERED: dextrose ORAL solution 15 GM/59 ML bottle PO PRN (00:40)
[2018-05-05] MEDS ORDERED: dextrose 50%-water 50ml dispensing syringe IV PRN ×2 (00:40)
[2018-05-05] MEDS ORDERED: bisacodyl 10mg suppository rectal RC PRN (00:40)
[2018-05-05] MEDS ORDERED: calcium carbonate 500mg chew tablet PO PRN (00:40)
[2018-05-05] MEDS ORDERED: ondansetron/PF 4mg/2ml inj IV PRN (00:40)
[2018-05-05] MEDS: insulin glargine (Lantus) pen - multi-dose SQ SCH ×2 (01:19→21:21)
[2018-05-05] MEDS ORDERED: insulin Lispro (HumaLOG) vial - multi-dose SQ ONE (01:20)
[2018-05-05] MEDS ORDERED: albumin (human) 25% 100ml IV 100 ML IV PRN (07:20)
[2018-05-05] MEDS: furosemide 20MG tablet PO SCH ×2 (08:00→20:09)
[2018-05-05] MEDS: losartan 50mg tablet PO SCH (08:00)
[2018-05-05] MEDS: HYDROcodone/acetaminophen 10/325mg tab PO SCH ×4 (08:00→20:10)
[2018-05-05] MEDS: carVEDilol 12.5mg tablet PO SCH ×2 (08:00→20:10)
[2018-05-05] MEDS: pantoprazole 40mg Tablet.DR PO SCH (08:00)
[2018-05-05 08:45] VITALS: BP 90/61
[2018-05-05] MEDS: insulin Lispro (HumaLOG) vial - multi-dose SQ SCH ×2 (10:00→20:07)
[2018-05-05] MEDS: multivitamins, therapeutics tablet PO SCH (10:00)
[2018-05-05] MEDS: magnesium oxide 400mg tablet PO SCH ×2 (10:00→16:00)
[2018-05-05] MEDS: piperacillin-tazo 2.25gm/50ml 50 ML IV SCH ×2 (10:00→17:02)
[2018-05-05] MEDS: clopidogrel 75mg tablet PO SCH (10:01)
[2018-05-05] MEDS: docusate sod 100mg capsule PO SCH ×2 (10:01→20:09)
[2018-05-05] MEDS: aspirin 81mg tablet.DR PO SCH (10:01)
[2018-05-05] MEDS: gabapentin 100mg capsule PO SCH ×3 (10:01→20:10)
[2018-05-05] MEDS: heparin, porcine 5000 units/ml vial SQ SCH ×2 (10:01→20:11)
[2018-05-05 18:00] VITALS: BP 125/66
[2018-05-05] MEDS: lactobacillus rhamnosus 10,000 MMU CELLS/CAPSULE PO SCH (20:10)
[2018-05-05] MEDS: ROPINIRole 1mg tablet PO SCH (20:10)
[2018-05-05 22:00] VITALS: BP 116/67
[2018-05-06] MEDS: magnesium oxide 400mg tablet PO SCH ×3 (00:03→15:59)
[2018-05-06] MEDS: piperacillin-tazo 2.25gm/50ml 50 ML IV SCH ×3 (00:03→15:58)
[2018-05-06 06:00] VITALS: BP 94/50
[2018-05-06] MEDS: docusate sod 100mg capsule PO SCH ×2 (08:00→20:00)
[2018-05-06] MEDS: losartan 50mg tablet PO SCH (08:00)
[2018-05-06] MEDS: furosemide 20MG tablet PO SCH ×2 (08:00→20:00)
[2018-05-06] MEDS: dextrose ORAL solution 15 GM/59 ML bottle PO PRN (08:09)
[2018-05-06] MEDS: gabapentin 100mg capsule PO SCH ×3 (08:40→21:09)
[2018-05-06] MEDS: lactobacillus rhamnosus 10,000 MMU CELLS/CAPSULE PO SCH ×2 (08:40→21:10)
[2018-05-06] MEDS: carVEDilol 12.5mg tablet PO SCH ×2 (08:40→20:00)
[2018-05-06] MEDS: aspirin 81mg tablet.DR PO SCH (08:40)
[2018-05-06] MEDS: multivitamins, therapeutics tablet PO SCH (08:41)
[2018-05-06] MEDS: heparin, porcine 5000 units/ml vial SQ SCH ×2 (08:41→20:59)
[2018-05-06] MEDS: pantoprazole 40mg Tablet.DR PO SCH (08:41)
[2018-05-06] MEDS: HYDROcodone/acetaminophen 10/325mg tab PO SCH ×4 (08:41→21:10)
[2018-05-06] MEDS: clopidogrel 75mg tablet PO SCH (08:41)
[2018-05-06 09:06] LABS: BASOPHILS % (AUTO) 0.3 % (0-1); EOSINOPHILS # (AUTO) 1.4 X10'3 (0-0.9); EOSINOPHILS % (AUTO) 15.8 % (0-6); HEMATOCRIT 36.6 % (42.0-52.0); HEMOGLOBIN 11.8 g/dl (14.0-17.9); LYMPHOCYTES # (AUTO) 0.8 X10'3 (1.1-4.8); LYMPHOCYTES % (AUTO) 9.4 % (21-51); MEAN CORPUSCULAR HEMOGLOBIN 28.8 PG (27.0-31.0); MEAN CORPUSCULAR HGB CONC 32.2 % (33.0-36.5); MEAN CORPUSCULAR VOLUME 89.4 FL (78-98); MEAN PLATELET VOLUME 8.6 FL (7.4-10.4); MONOCYTES # (AUTO) 0.5 X10'3 (0-0.9); MONOCYTES % (AUTO) 5.6 % (2-12); NEUTROPHILS # (AUTO) 6.1 X10'3 (1.8-7.7); NEUTROPHILS % (AUTO) 68.9 % (42-75); PLATELET COUNT 262 X10'3 (140-440); RED BLOOD COUNT 4.09 X10'6 (4.70-6.10); RED CELL DISTRIBUTION WIDTH 17.4 % (11.5-14.5); WHITE BLOOD COUNT 8.8 X10'3 (4.5-11.0)
[2018-05-06 09:21] LABS: ALANINE AMINOTRANSFERASE 16 U/L (12-78); ALBUMIN 2.3 G/DL (3.4-5.0); ALBUMIN/GLOBULIN RATIO 0.5 (1.1-1.5); ALKALINE PHOSPHATASE 137 IU/L (46-116); ANION GAP 9 (8-16); ASPARTATE AMINO TRANSFERASE 13 U/L (10-37); BILIRUBIN,TOTAL 0.6 MG/DL (0.1-1.0); BLOOD UREA NITROGEN 39 MG/DL (7-18); CALCIUM 8.5 MG/DL (8.5-10.1); CHLORIDE 99 MMOL/L (99-107); CREATININE 4.35 MG/DL (0.60-1.10); GLUCOSE 74 MG/DL (70-104); MAGNESIUM 1.9 MG/DL (1.5-2.4); PHOSPHORUS 3.1 MG/DL (2.3-4.5); POTASSIUM 3.9 MMOL/L (3.5-5.1); SODIUM 137 MMOL/L (135-145); TOTAL CARBON DIOXIDE 29.1 MMOL/L (24-32); TOTAL PROTEIN 7.1 G/DL (6.4-8.2); eGFR 14 ML/MIN
[2018-05-06 10:00] VITALS: BP 99/49
[2018-05-06] MEDS: insulin Lispro (HumaLOG) vial - multi-dose SQ SCH (13:40)
[2018-05-06 18:00] VITALS: BP 83/45
[2018-05-06 18:40] VITALS: BP 144/96
[2018-05-06 19:00] VITALS: BP 92/59
[2018-05-06] MEDS: insulin glargine (Lantus) pen - multi-dose SQ SCH (21:00)
[2018-05-06] MEDS: ROPINIRole 1mg tablet PO SCH (21:09)
[2018-05-06 22:00] VITALS: BP 100/60
[2018-05-07] MEDS: magnesium oxide 400mg tablet PO SCH ×4 (00:29→23:40)
[2018-05-07] MEDS: piperacillin-tazo 2.25gm/50ml 50 ML IV SCH ×4 (00:29→23:40)
[2018-05-07 06:00] VITALS: BP 95/53
[2018-05-07 06:48] LABS: ALANINE AMINOTRANSFERASE 16 U/L (12-78); ALBUMIN 2.1 G/DL (3.4-5.0); ALBUMIN/GLOBULIN RATIO 0.5 (1.1-1.5); ALKALINE PHOSPHATASE 130 IU/L (46-116); ANION GAP 8 (8-16); ASPARTATE AMINO TRANSFERASE 14 U/L (10-37); BILIRUBIN,TOTAL 0.5 MG/DL (0.1-1.0); BLOOD UREA NITROGEN 54 MG/DL (7-18); BUN/CREATININE RATIO 9.3 (5.4-32.0); CALCIUM 8.1 MG/DL (8.5-10.1); CHLORIDE 95 MMOL/L (99-107); CREATININE 5.83 MG/DL (0.60-1.10); GLUCOSE 92 MG/DL (70-104); MAGNESIUM 1.8 MG/DL (1.5-2.4); PHOSPHORUS 4.3 MG/DL (2.3-4.5); POTASSIUM 4.2 MMOL/L (3.5-5.1); SODIUM 133 MMOL/L (135-145); TOTAL CARBON DIOXIDE 29.9 MMOL/L (24-32); TOTAL PROTEIN 6.6 G/DL (6.4-8.2); eGFR 10 ML/MIN
[2018-05-07 06:49] LABS: BASOPHILS % (AUTO) 0.1 % (0-1); EOSINOPHILS # (AUTO) 1.5 X10'3 (0-0.9); HEMATOCRIT 34.7 % (42.0-52.0); LYMPHOCYTES # (AUTO) 0.9 X10'3 (1.1-4.8); LYMPHOCYTES % (AUTO) 9.1 % (21-51); MEAN CORPUSCULAR HEMOGLOBIN 28.5 PG (27.0-31.0); MEAN CORPUSCULAR HGB CONC 31.7 % (33.0-36.5); MEAN PLATELET VOLUME 8.8 FL (7.4-10.4); MONOCYTES # (AUTO) 0.5 X10'3 (0-0.9); MONOCYTES % (AUTO) 4.9 % (2-12); NEUTROPHILS # (AUTO) 6.6 X10'3 (1.8-7.7); NEUTROPHILS % (AUTO) 69.9 % (42-75); PLATELET COUNT 237 X10'3 (140-440); RED BLOOD COUNT 3.86 X10'6 (4.70-6.10); RED CELL DISTRIBUTION WIDTH 17.2 % (11.5-14.5); WHITE BLOOD COUNT 9.4 X10'3 (4.5-11.0)
[2018-05-07] MEDS: clopidogrel 75mg tablet PO SCH (08:00)
[2018-05-07] MEDS: furosemide 20MG tablet PO SCH ×2 (08:00→20:00)
[2018-05-07] MEDS: aspirin 81mg tablet.DR PO SCH (08:00)
[2018-05-07] MEDS: lactobacillus rhamnosus 10,000 MMU CELLS/CAPSULE PO SCH ×2 (08:00→20:14)
[2018-05-07] MEDS: gabapentin 100mg capsule PO SCH ×3 (08:00→20:14)
[2018-05-07] MEDS: carVEDilol 12.5mg tablet PO SCH ×2 (08:00→20:16)
[2018-05-07] MEDS: docusate sod 100mg capsule PO SCH ×2 (08:00→20:14)
[2018-05-07] MEDS: pantoprazole 40mg Tablet.DR PO SCH (08:00)
[2018-05-07] MEDS: HYDROcodone/acetaminophen 10/325mg tab PO SCH ×4 (08:00→20:50)
[2018-05-07] MEDS: losartan 25mg tablet PO SCH (08:00)
[2018-05-07] MEDS: multivitamins, therapeutics tablet PO SCH (08:00)
[2018-05-07] MEDS: heparin, porcine 5000 units/ml vial SQ SCH ×2 (08:06→20:15)
[2018-05-07] MEDS ORDERED: albumin (human) 25% 100ml IV 100 ML IV ONE ×2 (08:25→09:25)
[2018-05-07] MEDS ORDERED: epoetin 20,000 units/ml inj IV ONE (09:15)
[2018-05-07] MEDS ORDERED: albumin (human) 25% 100ml IV 100 ML IV PRN (09:15)
[2018-05-07 10:00] VITALS: BP 106/76
[2018-05-07 18:00] VITALS: BP 106/58
[2018-05-07] MEDS: ROPINIRole 1mg tablet PO SCH (20:14)
[2018-05-07 20:16] VITALS: BP 100/67
[2018-05-07] MEDS: insulin glargine (Lantus) pen - multi-dose SQ SCH (20:52)
[2018-05-07 22:00] VITALS: BP 106/62
[2018-05-08 06:00] VITALS: BP 100/49
[2018-05-08 06:35] LABS: BASOPHILS % (AUTO) 0.2 % (0-1); EOSINOPHILS # (AUTO) 1.5 X10'3 (0-0.9); EOSINOPHILS % (AUTO) 14.9 % (0-6); HEMOGLOBIN 10.4 g/dl (14.0-17.9); MEAN CORPUSCULAR HEMOGLOBIN 28.3 PG (27.0-31.0); MEAN CORPUSCULAR HGB CONC 31.5 % (33.0-36.5); MEAN CORPUSCULAR VOLUME 89.9 FL (78-98); MEAN PLATELET VOLUME 8.8 FL (7.4-10.4); MONOCYTES # (AUTO) 0.5 X10'3 (0-0.9); NEUTROPHILS # (AUTO) 7.2 X10'3 (1.8-7.7); NEUTROPHILS % (AUTO) 69.9 % (42-75); PLATELET COUNT 202 X10'3 (140-440); RED BLOOD COUNT 3.68 X10'6 (4.70-6.10); RED CELL DISTRIBUTION WIDTH 17.3 % (11.5-14.5); WHITE BLOOD COUNT 10.3 X10'3 (4.5-11.0)
[2018-05-08 06:45] LABS: ALANINE AMINOTRANSFERASE 14 U/L (12-78); ALBUMIN 2.5 G/DL (3.4-5.0); ALBUMIN/GLOBULIN RATIO 0.6 (1.1-1.5); ALKALINE PHOSPHATASE 126 IU/L (46-116); ANION GAP 12 (8-16); ASPARTATE AMINO TRANSFERASE 12 U/L (10-37); BILIRUBIN,TOTAL 0.5 MG/DL (0.1-1.0); BLOOD UREA NITROGEN 72 MG/DL (7-18); BUN/CREATININE RATIO 9.8 (5.4-32.0); CALCIUM 8.3 MG/DL (8.5-10.1); CHLORIDE 93 MMOL/L (99-107); CREATININE 7.31 MG/DL (0.60-1.10); GLUCOSE 99 MG/DL (70-104); MAGNESIUM 2.1 MG/DL (1.5-2.4); PHOSPHORUS 4.9 MG/DL (2.3-4.5); POTASSIUM 4.5 MMOL/L (3.5-5.1); SODIUM 134 MMOL/L (135-145); TOTAL CARBON DIOXIDE 29.4 MMOL/L (24-32); eGFR 7 ML/MIN
[2018-05-08] MEDS: piperacillin-tazo 2.25gm/50ml 50 ML IV SCH ×3 (07:50→23:22)
[2018-05-08] MEDS: carVEDilol 12.5mg tablet PO SCH ×2 (07:52→20:08)
[2018-05-08] MEDS: gabapentin 100mg capsule PO SCH ×2 (07:52→14:02)
[2018-05-08] MEDS: lactobacillus rhamnosus 10,000 MMU CELLS/CAPSULE PO SCH ×2 (07:52→20:08)
[2018-05-08] MEDS: aspirin 81mg tablet.DR PO SCH (07:52)
[2018-05-08] MEDS: magnesium oxide 400mg tablet PO SCH ×3 (07:52→23:22)
[2018-05-08] MEDS: clopidogrel 75mg tablet PO SCH (07:53)
[2018-05-08] MEDS: HYDROcodone/acetaminophen 10/325mg tab PO SCH (07:53)
[2018-05-08] MEDS: pantoprazole 40mg Tablet.DR PO SCH (07:53)
[2018-05-08] MEDS: multivitamins, therapeutics tablet PO SCH (07:54)
[2018-05-08] MEDS: heparin, porcine 5000 units/ml vial SQ SCH ×2 (07:55→20:09)
[2018-05-08] MEDS: furosemide 20MG tablet PO SCH ×2 (08:00→20:00)
[2018-05-08] MEDS: docusate sod 100mg capsule PO SCH ×2 (08:00→20:09)
[2018-05-08] MEDS: losartan 25mg tablet PO SCH (08:00)
[2018-05-08] MEDS ORDERED: epoetin 20,000 units/ml inj IV ONE (09:50)
[2018-05-08] MEDS ORDERED: LIDOcaine 1% (10mg/ml) 2ml vial SQ ONE (09:50)
[2018-05-08] MEDS ORDERED: albumin (human) 25% 100ml IV 100 ML IV PRN (09:50)
[2018-05-08] MEDS ORDERED: HYDROcodone/acetaminophen 10/325mg tab PO PRN (13:50)
[2018-05-08 18:00] VITALS: BP 99/63
[2018-05-08] MEDS: ROPINIRole 1mg tablet PO SCH (20:08)
[2018-05-08] MEDS: insulin glargine (Lantus) pen - multi-dose SQ SCH (20:44)
[2018-05-08 22:00] VITALS: BP 119/61
[2018-05-09 05:00] VITALS: BP 109/63
[2018-05-09 07:27] LABS: BASOPHILS # (AUTO) 0.1 X10'3 (0-0.2); BASOPHILS % (AUTO) 0.6 % (0-1); EOSINOPHILS # (AUTO) 1.3 X10'3 (0-0.9); EOSINOPHILS % (AUTO) 14.9 % (0-6); HEMATOCRIT 31.9 % (42.0-52.0); HEMOGLOBIN 10.2 g/dl (14.0-17.9); LYMPHOCYTES # (AUTO) 1.2 X10'3 (1.1-4.8); LYMPHOCYTES % (AUTO) 13.6 % (21-51); MEAN CORPUSCULAR HEMOGLOBIN 28.6 PG (27.0-31.0); MEAN CORPUSCULAR VOLUME 89.4 FL (78-98); MEAN PLATELET VOLUME 8.6 FL (7.4-10.4); MONOCYTES # (AUTO) 0.6 X10'3 (0-0.9); MONOCYTES % (AUTO) 7.1 % (2-12); NEUTROPHILS # (AUTO) 5.4 X10'3 (1.8-7.7); NEUTROPHILS % (AUTO) 63.8 % (42-75); PLATELET COUNT 199 X10'3 (140-440); RED BLOOD COUNT 3.57 X10'6 (4.70-6.10); RED CELL DISTRIBUTION WIDTH 17.3 % (11.5-14.5); WHITE BLOOD COUNT 8.5 X10'3 (4.5-11.0)
[2018-05-09 07:54] LABS: ALANINE AMINOTRANSFERASE 18 U/L (12-78); ALBUMIN 2.6 G/DL (3.4-5.0); ALBUMIN/GLOBULIN RATIO 0.6 (1.1-1.5); ALKALINE PHOSPHATASE 139 IU/L (46-116); ANION GAP 12 (8-16); ASPARTATE AMINO TRANSFERASE 17 U/L (10-37); BILIRUBIN,TOTAL 0.5 MG/DL (0.1-1.0); BLOOD UREA NITROGEN 52 MG/DL (7-18); CALCIUM 8.1 MG/DL (8.5-10.1); CHLORIDE 94 MMOL/L (99-107); CREATININE 5.77 MG/DL (0.60-1.10); GLUCOSE 71 MG/DL (70-104); PHOSPHORUS 3.6 MG/DL (2.3-4.5); POTASSIUM 4.2 MMOL/L (3.5-5.1); SODIUM 133 MMOL/L (135-145); TOTAL CARBON DIOXIDE 27.4 MMOL/L (24-32); TOTAL PROTEIN 7.1 G/DL (6.4-8.2); eGFR 10 ML/MIN
[2018-05-09] MEDS: losartan 25mg tablet PO SCH (08:00)
[2018-05-09] MEDS: pantoprazole 40mg Tablet.DR PO SCH (08:00)
[2018-05-09] MEDS: furosemide 20MG tablet PO SCH ×2 (08:00→20:24)
[2018-05-09] MEDS: docusate sod 100mg capsule PO SCH ×2 (08:00→20:24)
[2018-05-09] MEDS: magnesium oxide 400mg tablet PO SCH ×3 (09:16→23:49)
[2018-05-09] MEDS: aspirin 81mg tablet.DR PO SCH (09:16)
[2018-05-09] MEDS: carVEDilol 12.5mg tablet PO SCH ×2 (09:16→20:24)
[2018-05-09] MEDS: lactobacillus rhamnosus 10,000 MMU CELLS/CAPSULE PO SCH ×2 (09:16→20:24)
[2018-05-09] MEDS: multivitamins, therapeutics tablet PO SCH (09:17)
[2018-05-09] MEDS: gabapentin 100mg capsule PO SCH (09:17)
[2018-05-09] MEDS: clopidogrel 75mg tablet PO SCH (09:17)
[2018-05-09] MEDS: heparin, porcine 5000 units/ml vial SQ SCH ×2 (09:18→20:26)
[2018-05-09] MEDS: piperacillin-tazo 2.25gm/50ml 50 ML IV SCH ×3 (09:21→23:49)
[2018-05-09 10:00] VITALS: BP 139/31
[2018-05-09 18:00] VITALS: BP 129/99
[2018-05-09] MEDS: ROPINIRole 1mg tablet PO SCH (20:24)
[2018-05-09] MEDS: insulin Lispro (HumaLOG) vial - multi-dose SQ SCH (20:33)
[2018-05-09] MEDS: insulin glargine (Lantus) pen - multi-dose SQ SCH (20:33)
[2018-05-09 22:00] VITALS: BP 125/69
[2018-05-10 02:23] LABS: ALANINE AMINOTRANSFERASE 14 U/L (12-78); ALBUMIN 2.5 G/DL (3.4-5.0); ALBUMIN/GLOBULIN RATIO 0.6 (1.1-1.5); ALKALINE PHOSPHATASE 139 IU/L (46-116); ANION GAP 12 (8-16); ASPARTATE AMINO TRANSFERASE 15 U/L (10-37); BILIRUBIN,TOTAL 0.4 MG/DL (0.1-1.0); BLOOD UREA NITROGEN 62 MG/DL (7-18); BUN/CREATININE RATIO 9.1 (5.4-32.0); CALCIUM 8.3 MG/DL (8.5-10.1); CHLORIDE 93 MMOL/L (99-107); CREATININE 6.84 MG/DL (0.60-1.10); GLUCOSE 220 MG/DL (70-104); MAGNESIUM 2.1 MG/DL (1.5-2.4); PHOSPHORUS 4.5 MG/DL (2.3-4.5); POTASSIUM 3.9 MMOL/L (3.5-5.1); SODIUM 132 MMOL/L (135-145); TOTAL CARBON DIOXIDE 27.5 MMOL/L (24-32); eGFR 8 ML/MIN
[2018-05-10 02:46] LABS: BASOPHILS % (AUTO) 0.4 % (0-1); EOSINOPHILS # (AUTO) 1.4 X10'3 (0-0.9); EOSINOPHILS % (AUTO) 18.4 % (0-6); HEMOGLOBIN 10.4 g/dl (14.0-17.9); LYMPHOCYTES # (AUTO) 1.1 X10'3 (1.1-4.8); LYMPHOCYTES % (AUTO) 15.3 % (21-51); MEAN CORPUSCULAR HEMOGLOBIN 28.6 PG (27.0-31.0); MEAN CORPUSCULAR HGB CONC 31.6 % (33.0-36.5); MEAN CORPUSCULAR VOLUME 90.5 FL (78-98); MEAN PLATELET VOLUME 9.1 FL (7.4-10.4); MONOCYTES # (AUTO) 0.5 X10'3 (0-0.9); MONOCYTES % (AUTO) 6.8 % (2-12); NEUTROPHILS # (AUTO) 4.4 X10'3 (1.8-7.7); NEUTROPHILS % (AUTO) 59.1 % (42-75); PLATELET COUNT 182 X10'3 (140-440); RED BLOOD COUNT 3.64 X10'6 (4.70-6.10); RED CELL DISTRIBUTION WIDTH 16.9 % (11.5-14.5); WHITE BLOOD COUNT 7.4 X10'3 (4.5-11.0)
[2018-05-10 05:00] VITALS: BP 159/93
[2018-05-10 06:00] VITALS: BP 119/62
[2018-05-10] MEDS: furosemide 20MG tablet PO SCH ×2 (08:00→19:45)
[2018-05-10] MEDS: docusate sod 100mg capsule PO SCH ×2 (08:00→19:49)
[2018-05-10] MEDS ORDERED: normal saline 1000ml 250 ML IV PRN (08:00)
[2018-05-10] MEDS ORDERED: epoetin 20,000 units/ml inj IV ONE (08:00)
[2018-05-10] MEDS ORDERED: LIDOcaine 1% (10mg/ml) 2ml vial SQ ONE (08:00)
[2018-05-10] MEDS: losartan 25mg tablet PO SCH (08:00)
[2018-05-10] MEDS: carVEDilol 12.5mg tablet PO SCH ×2 (08:00→19:45)
[2018-05-10] MEDS ORDERED: heparin 1,000 units/ml 10ml inj IV ONE (08:00)
[2018-05-10] MEDS: insulin Lispro (HumaLOG) vial - multi-dose SQ SCH (09:36)
[2018-05-10] MEDS: lactobacillus rhamnosus 10,000 MMU CELLS/CAPSULE PO SCH ×2 (09:37→19:45)
[2018-05-10] MEDS: magnesium oxide 400mg tablet PO SCH ×2 (09:38→16:14)
[2018-05-10] MEDS: aspirin 81mg tablet.DR PO SCH (09:39)
[2018-05-10] MEDS: clopidogrel 75mg tablet PO SCH (09:39)
[2018-05-10] MEDS: pantoprazole 40mg Tablet.DR PO SCH (09:39)
[2018-05-10] MEDS: heparin, porcine 5000 units/ml vial SQ SCH ×2 (09:41→19:45)
[2018-05-10] MEDS: gabapentin 100mg capsule PO SCH (09:48)
[2018-05-10] MEDS: multivitamins, therapeutics tablet PO SCH (09:49)
[2018-05-10 10:00] VITALS: BP 103/55
[2018-05-10] MEDS: dextrose ORAL solution 15 GM/59 ML bottle PO PRN ×2 (13:01→13:23)
[2018-05-10 18:00] VITALS: BP 112/62
[2018-05-10 19:38] VITALS: BP 107/63
[2018-05-10] MEDS: ROPINIRole 1mg tablet PO SCH (19:47)
[2018-05-10] MEDS: insulin glargine (Lantus) pen - multi-dose SQ SCH (21:00)
[2018-05-10 22:00] VITALS: BP 124/68
[2018-05-11] MEDS: magnesium oxide 400mg tablet PO SCH ×3 (00:03→16:00)
[2018-05-11 06:00] VITALS: BP 107/60
[2018-05-11 07:18] LABS: HBSAG SCREEN Negative (Negative)
[2018-05-11] MEDS: docusate sod 100mg capsule PO SCH (08:00)
[2018-05-11] MEDS: multivitamins, therapeutics tablet PO SCH (08:18)
[2018-05-11] MEDS: aspirin 81mg tablet.DR PO SCH (08:18)
[2018-05-11] MEDS: lactobacillus rhamnosus 10,000 MMU CELLS/CAPSULE PO SCH (08:18)
[2018-05-11] MEDS: losartan 25mg tablet PO SCH (08:18)
[2018-05-11] MEDS: carVEDilol 12.5mg tablet PO SCH (08:18)
[2018-05-11] MEDS: pantoprazole 40mg Tablet.DR PO SCH (08:18)
[2018-05-11] MEDS: gabapentin 100mg capsule PO SCH (08:19)
[2018-05-11] MEDS: clopidogrel 75mg tablet PO SCH (08:19)
[2018-05-11] MEDS: furosemide 20MG tablet PO SCH (08:19)
[2018-05-11] MEDS: heparin, porcine 5000 units/ml vial SQ SCH (08:19)
[2018-05-11 10:00] VITALS: BP 122/65
[2018-05-11] MEDS ORDERED: HEPA500017 SQ (16:06)
[2018-05-11] MEDS ORDERED: PIPE2.2535 IV (16:06)
[2018-05-11 18:00] VITALS: BP 98/35
[2018-05-12] MEDS ORDERED: heparin 1,000 units/ml 10ml inj IV ONE (08:00)
[2018-05-12] MEDS ORDERED: LIDOcaine 1% (10mg/ml) 2ml vial SQ ONE (08:00)
[2018-05-12] MEDS ORDERED: normal saline 1000ml 250 ML IV PRN (08:00)
[2018-05-12] MEDS ORDERED: epoetin 20,000 units/ml inj IV ONE (08:00)
== END 2018-05-11 19:30 | disposition short-term general hospital (02) | DRG 299 ==
LOC: ER 16:57 → ED HOLD 05-05 00:38 → ORTHO 4S 05-05 09:04
PROVIDERS: ATTEND Internal Medicine Critical Care Medicine
PROC: 5A1D70Z Performance of Urinary Filtration, Intermittent, Less than 6 Hours Per Day (ICD-10-PCS; 2018-05-05)
PROC: 5A1D70Z Performance of Urinary Filtration, Intermittent, Less than 6 Hours Per Day (ICD-10-PCS; 2018-05-08)
PROC: 5A1D70Z Performance of Urinary Filtration, Intermittent, Less than 6 Hours Per Day (ICD-10-PCS; principal; 2018-05-10)
DX: E11.52 Type 2 diabetes mellitus with diabetic peripheral angiopathy with gangrene (principal); N18.6 End stage renal disease; I12.0 Hypertensive chronic kidney disease with stage 5 chronic kidney disease or end stage renal disease; G93.40 Encephalopathy, unspecified; I96 Gangrene, not elsewhere classified; M86.8X7 Other osteomyelitis, ankle and foot; E11.22 Type 2 diabetes mellitus with diabetic chronic kidney disease; E11.65 Type 2 diabetes mellitus with hyperglycemia; E78.00 Pure hypercholesterolemia, unspecified; E78.5 Hyperlipidemia, unspecified; R74.8 Abnormal levels of other serum enzymes; G47.30 Sleep apnea, unspecified; I25.10 Atherosclerotic heart disease of native coronary artery without angina pectoris; E11.69 Type 2 diabetes mellitus with other specified complication; D64.9 Anemia, unspecified; M85.88 Other specified disorders of bone density and structure, other site; I95.2 Hypotension due to drugs; J44.9 Chronic obstructive pulmonary disease, unspecified; I25.2 Old myocardial infarction; Z99.2 Dependence on renal dialysis; Z99.3 Dependence on wheelchair; Z88.8 Allergy status to other drugs, medicaments and biological substances; Z91.041 Radiographic dye allergy status; Z89.611 Acquired absence of right leg above knee; Z79.899 Other long term (current) drug therapy; Z79.4 Long term (current) use of insulin; Z79.82 Long term (current) use of aspirin; Z86.711 Personal history of pulmonary embolism; Z82.49 Family history of ischemic heart disease and other diseases of the circulatory system; T46.5X5A Adverse effect of other antihypertensive drugs, initial encounter; Y92.238 Other place in hospital as the place of occurrence of the external cause
CPT/HCPCS: 36415; 71045; 73620; 80053; 82550; 82948; 83605; 83690; 83735; 84100; 84484; 85025; 85610; 85730; 87040; 87070; 87340; 93005; 93922; 93926; 93971; 96365; 96367; 96375; 99291; G0257; G0378; J0885; J1644; J1815; J2405; J2543; J3370; J3490; J7030; P9047

== ENCOUNTER 2018-06-04 14:16 | Inpatient (IN) | payer MEDICARE, OTHER ==
[~2018-06-04] VITALS: Ht 91.4 cm; Wt 82.7 kg
[~2018-06-04 14:16] MED LIST changes: -CHOL400T57 PO; +HEPA500017 SQ; +NORepinephrine bitartrate 8 MG in NS 250 ML BAG (32 mcg/ml) IV ONE; +etomidate 2mg/ml inj. ONE; +rocuronium 10mg/ml inj IV ONE; +sodium chloride 0.9% 10ml vial - diluent IJ ONE
[2018-06-04] MEDS ORDERED: pantoprazole IV 80 MG in normal saline 100ml IV soln 100 ML IV ONE (14:30)
[2018-06-04] MEDS ORDERED: pantoprazole 40 MG vial IV ONE (14:49)
[2018-06-04] MEDS ORDERED: ondansetron/PF 4mg/2ml inj IV ONE (14:55)
[2018-06-04] MEDS ORDERED: normal saline 1000ML IV soln IV ONE (14:55)
[2018-06-04 15:03] LABS: BASOPHILS % (AUTO) 0.1 % (0-1); EOSINOPHILS % (AUTO) 0 % (0-6); HEMATOCRIT 24.2 % (42.0-52.0); HEMOGLOBIN 7.6 g/dl (14.0-17.9); LYMPHOCYTES # (AUTO) 0.7 X10'3 (1.1-4.8); LYMPHOCYTES % (AUTO) 4.9 % (21-51); MEAN CORPUSCULAR HGB CONC 31.5 % (33.0-36.5); MEAN CORPUSCULAR VOLUME 88.8 FL (78-98); MEAN PLATELET VOLUME 8.6 FL (7.4-10.4); MONOCYTES # (AUTO) 0.8 X10'3 (0-0.9); MONOCYTES % (AUTO) 5.6 % (2-12); NEUTROPHILS # (AUTO) 12.3 X10'3 (1.8-7.7); NEUTROPHILS % (AUTO) 89.4 % (42-75); PLATELET COUNT 331 X10'3 (140-440); RED BLOOD COUNT 2.73 X10'6 (4.70-6.10); RED CELL DISTRIBUTION WIDTH 17.9 % (11.5-14.5); WHITE BLOOD COUNT 13.8 X10'3 (4.5-11.0)
[2018-06-04 15:15] LABS: INR 1.3 INR; PARTIAL THROMBOPLASTIN TIME 33 SECONDS (22-32); PROTHROMBIN TIME 13.1 SECONDS (9.0-12.0)
[2018-06-04 15:17] LABS: ALANINE AMINOTRANSFERASE 15 U/L (12-78); ALBUMIN 2.7 G/DL (3.4-5.0); ALBUMIN/GLOBULIN RATIO 0.6 (1.1-1.5); ALKALINE PHOSPHATASE 126 IU/L (46-116); ANION GAP 24 (8-16); ASPARTATE AMINO TRANSFERASE 14 U/L (10-37); BILIRUBIN,TOTAL 0.5 MG/DL (0.1-1.0); BLOOD UREA NITROGEN 135 MG/DL (7-18); BUN/CREATININE RATIO 12.5 (5.4-32.0); CALCIUM 8.3 MG/DL (8.5-10.1); CHLORIDE 94 MMOL/L (99-107); CREATININE 10.82 MG/DL (0.60-1.10); GLUCOSE 285 MG/DL (70-104); POTASSIUM 3.9 MMOL/L (3.5-5.1); SODIUM 141 MMOL/L (135-145); TOTAL CARBON DIOXIDE 22.7 MMOL/L (24-32); TOTAL PROTEIN 7.1 G/DL (6.4-8.2); eGFR 5 ML/MIN
[2018-06-04] MEDS ORDERED: octreotide inj. 1,250 MCG in normal saline 250ml IV soln 250 ML IV ONE (15:25)
[2018-06-04 15:39] LABS: ANISOCYTOSIS 2+; ELLIPTOCYTES FEW; PLATELET ESTIMATE NORMAL
[2018-06-04 15:40] LABS: HYPOCHROMASIA 1+
[2018-06-04 15:41] LABS: MICROCYTOSIS 1+; SCHISTOCYTES FEW
[2018-06-04 16:53] VITALS: BP 64/36
[2018-06-04] MEDS ORDERED: POTA20PA40 PO (17:55)
[2018-06-04] MEDS ORDERED: FLO0.4C PO (17:59)
[2018-06-04] MEDS: pantoprazole 40MG/NS 100ML BAG 100 ML IV SCH ×2 (18:48→21:00)
[2018-06-04 18:57] VITALS: BP 74/48
[2018-06-04 19:11] VITALS: BP 72/42
[2018-06-04] MEDS ORDERED: SPIR25TA5 PO (19:32)
[2018-06-04] MEDS ORDERED: LOSA50TA21 PO (19:32)
[2018-06-04] MEDS ORDERED: BUME1TAB4 PO (19:41)
[2018-06-04] MEDS ORDERED: normal saline 1000ml 1,000 ML IV SCH (19:44)
[2018-06-04] MEDS ORDERED: dextrose 50%-water 50ml dispensing syringe IV PRN (19:45)
[2018-06-04] MEDS ORDERED: dextrose ORAL solution 15 GM/59 ML bottle PO PRN ×2 (19:45)
[2018-06-04] MEDS ORDERED: glucagon, human recombinant 1mg kit SUBCUT PRN (19:45)
[2018-06-04] MEDS ORDERED: MESSAGE TO PHARMACY PO ONE (19:45)
[2018-06-04] MEDS ORDERED: acetaminophen 325mg tablet PO PRN (19:45)
[2018-06-04] MEDS ORDERED: ipratropium/albuterol 3ml nebule NEB PRN (19:45)
[2018-06-04] MEDS ORDERED: ATOR40TA PO (19:52)
[2018-06-04] MEDS ORDERED: ISOS30TA10 PO (19:55)
[2018-06-04] MEDS: docusate sod 100mg capsule PO SCH (20:00)
[2018-06-04 20:12] VITALS: BP 77/50
[2018-06-04] MEDS ORDERED: pantoprazole 40MG/NS 100ML BAG 100 ML IV SCH (21:00)
[2018-06-04] MEDS: insulin glargine (Lantus) pen - multi-dose SQ SCH (21:00)
[2018-06-04 23:00] VITALS: BP 80/55
[2018-06-04 23:27] LABS: HEMATOCRIT 28.3 % (42.0-52.0); HEMOGLOBIN 9.2 g/dl (14.0-17.9); MEAN CORPUSCULAR HEMOGLOBIN 28.6 PG (27.0-31.0); MEAN CORPUSCULAR HGB CONC 32.5 % (33.0-36.5); MEAN CORPUSCULAR VOLUME 88.3 FL (78-98); MEAN PLATELET VOLUME 8.9 FL (7.4-10.4); PLATELET COUNT 301 X10'3 (140-440); RED BLOOD COUNT 3.21 X10'6 (4.70-6.10); RED CELL DISTRIBUTION WIDTH 16.6 % (11.5-14.5); WHITE BLOOD COUNT 11.6 X10'3 (4.5-11.0)
[2018-06-04] MEDS ORDERED: albumin (human) 25% 100ml IV 100 ML IV ONE (23:40)
[2018-06-05] VITALS (27 sets, daily range): BP systolic 67–109; BP diastolic 42–69
[2018-06-05] MEDS: pantoprazole 40MG/NS 100ML BAG 100 ML IV SCH ×5 (02:03→22:15)
[2018-06-05 05:39] LABS: BASOPHILS % (AUTO) 0.5 % (0-1); EOSINOPHILS # (AUTO) 0.1 X10'3 (0-0.9); EOSINOPHILS % (AUTO) 1.2 % (0-6); HEMATOCRIT 27.7 % (42.0-52.0); LYMPHOCYTES # (AUTO) 0.9 X10'3 (1.1-4.8); LYMPHOCYTES % (AUTO) 9.5 % (21-51); MEAN CORPUSCULAR HEMOGLOBIN 28.4 PG (27.0-31.0); MEAN CORPUSCULAR HGB CONC 32.4 % (33.0-36.5); MEAN CORPUSCULAR VOLUME 87.9 FL (78-98); MEAN PLATELET VOLUME 8.7 FL (7.4-10.4); MONOCYTES # (AUTO) 0.7 X10'3 (0-0.9); MONOCYTES % (AUTO) 7.5 % (2-12); NEUTROPHILS # (AUTO) 7.3 X10'3 (1.8-7.7); NEUTROPHILS % (AUTO) 81.3 % (42-75); PLATELET COUNT 266 X10'3 (140-440); RED BLOOD COUNT 3.15 X10'6 (4.70-6.10); RED CELL DISTRIBUTION WIDTH 16.6 % (11.5-14.5); WHITE BLOOD COUNT 8.9 X10'3 (4.5-11.0)
[2018-06-05 05:52] LABS: INR 1.2 INR; PARTIAL THROMBOPLASTIN TIME 34 SECONDS (22-32); PROTHROMBIN TIME 12.5 SECONDS (9.0-12.0)
[2018-06-05 06:06] LABS: ALANINE AMINOTRANSFERASE 14 U/L (12-78); ALBUMIN 2.8 G/DL (3.4-5.0); ALBUMIN/GLOBULIN RATIO 0.7 (1.1-1.5); ALKALINE PHOSPHATASE 104 IU/L (46-116); ANION GAP 23 (8-16); ASPARTATE AMINO TRANSFERASE 14 U/L (10-37); BILIRUBIN,TOTAL 0.7 MG/DL (0.1-1.0); BLOOD UREA NITROGEN 137 MG/DL (7-18); BUN/CREATININE RATIO 13.4 (5.4-32.0); CALCIUM 7.9 MG/DL (8.5-10.1); CHLORIDE 99 MMOL/L (99-107); CREATININE 10.22 MG/DL (0.60-1.10); GLUCOSE 216 MG/DL (70-104); MAGNESIUM 2.1 MG/DL (1.5-2.4); PHOSPHORUS 7.5 MG/DL (2.3-4.5); POTASSIUM 3.5 MMOL/L (3.5-5.1); SODIUM 144 MMOL/L (135-145); TOTAL CARBON DIOXIDE 22.1 MMOL/L (24-32); TOTAL PROTEIN 6.6 G/DL (6.4-8.2); eGFR 5 ML/MIN
[2018-06-05] MEDS: docusate sod 100mg capsule PO SCH ×2 (06:37→19:42)
[2018-06-05] MEDS ORDERED: LIDOcaine 1% (10mg/ml) 2ml vial SQ ONE (08:00)
[2018-06-05] MEDS ORDERED: normal saline 1000ml 100 ML IV PRN (08:00)
[2018-06-05] MEDS ORDERED: epoetin 20,000 units/ml inj IV ONE (08:00)
[2018-06-05] MEDS ORDERED: normal saline 1000ml 250 ML IV PRN (08:00)
[2018-06-05] MEDS: insulin Lispro (HumaLOG) vial - multi-dose SQ SCH (08:46)
[2018-06-05] MEDS ORDERED: desmopressin inj. 28 MCG in normal saline 100ml IV soln 93 ML IV ONE (10:30)
[2018-06-05] MEDS ORDERED: NORMAL SALINE IV ONE (10:30)
[2018-06-05] MEDS ORDERED: TRANEXAMIC ACID IV ONE (10:30)
[2018-06-05] MEDS ORDERED: desmopressin inj. 24 MCG in normal saline 100ml IV soln 94 ML IV ONE (11:00)
[2018-06-05 11:06] LABS: HEMATOCRIT 27.5 % (42.0-52.0); HEMOGLOBIN 8.8 g/dl (14.0-17.9); MEAN CORPUSCULAR HEMOGLOBIN 28.2 PG (27.0-31.0); MEAN CORPUSCULAR HGB CONC 32.1 % (33.0-36.5); MEAN CORPUSCULAR VOLUME 87.6 FL (78-98); MEAN PLATELET VOLUME 8.5 FL (7.4-10.4); PLATELET COUNT 268 X10'3 (140-440); RED BLOOD COUNT 3.14 X10'6 (4.70-6.10); RED CELL DISTRIBUTION WIDTH 17.4 % (11.5-14.5); WHITE BLOOD COUNT 8.8 X10'3 (4.5-11.0)
[2018-06-05 11:20] LABS: PARTIAL THROMBOPLASTIN TIME 32 SECONDS (22-32)
[2018-06-05] MEDS: vasopressin inj. 60 UNIT in normal saline 100ml IV soln 97 ML IV SCH (11:35)
[2018-06-05] MEDS ORDERED: MIDAZolam 5mg/5ml vial ONE (15:38)
[2018-06-05] MEDS ORDERED: fentaNYL/PF 50MCG/1 ML 2ML syringe ONE (15:38)
[2018-06-05] MEDS ORDERED: LIDOcaine Viscous 15ml cup ONE (15:39)
[2018-06-05 16:03] LABS: HEMATOCRIT 33.6 % (42.0-52.0); MEAN CORPUSCULAR HEMOGLOBIN 29.1 PG (27.0-31.0); MEAN CORPUSCULAR HGB CONC 32.8 % (33.0-36.5); MEAN CORPUSCULAR VOLUME 88.7 FL (78-98); MEAN PLATELET VOLUME 8.6 FL (7.4-10.4); PLATELET COUNT 246 X10'3 (140-440); RED BLOOD COUNT 3.78 X10'6 (4.70-6.10); RED CELL DISTRIBUTION WIDTH 17.4 % (11.5-14.5); WHITE BLOOD COUNT 9.3 X10'3 (4.5-11.0)
[2018-06-05] MEDS: insulin glargine (Lantus) pen - multi-dose SQ SCH (21:00)
[2018-06-06] VITALS (30 sets, daily range): BP systolic 79–115; BP diastolic 51–70
[2018-06-06 00:48] LABS: H PYLORI ANTIBODY NEGATIVE (Neg)
[2018-06-06] MEDS: pantoprazole 40MG/NS 100ML BAG 100 ML IV SCH ×5 (02:03→21:14)
[2018-06-06 02:44] LABS: ALANINE AMINOTRANSFERASE 14 U/L (12-78); ALBUMIN 2.7 G/DL (3.4-5.0); ALBUMIN/GLOBULIN RATIO 0.7 (1.1-1.5); ALKALINE PHOSPHATASE 116 IU/L (46-116); ANION GAP 28 (8-16); ASPARTATE AMINO TRANSFERASE 19 U/L (10-37); BLOOD UREA NITROGEN 133 MG/DL (7-18); BUN/CREATININE RATIO 12.1 (5.4-32.0); CALCIUM 8.4 MG/DL (8.5-10.1); CHLORIDE 99 MMOL/L (99-107); CREATININE 10.96 MG/DL (0.60-1.10); GLUCOSE 241 MG/DL (70-104); INR 1.4 INR; PARTIAL THROMBOPLASTIN TIME 34 SECONDS (22-32); PHOSPHORUS 8.9 MG/DL (2.3-4.5); POTASSIUM 3.7 MMOL/L (3.5-5.1); PROTHROMBIN TIME 13.6 SECONDS (9.0-12.0); SODIUM 142 MMOL/L (135-145); TOTAL CARBON DIOXIDE 15.4 MMOL/L (24-32); TOTAL PROTEIN 6.8 G/DL (6.4-8.2); eGFR 5 ML/MIN
[2018-06-06 02:57] LABS: BASOPHILS % (AUTO) 0.5 % (0-1); EOSINOPHILS % (AUTO) 0 % (0-6); HEMATOCRIT 32.7 % (42.0-52.0); HEMOGLOBIN 10.7 g/dl (14.0-17.9); LYMPHOCYTES # (AUTO) 0.6 X10'3 (1.1-4.8); LYMPHOCYTES % (AUTO) 7.4 % (21-51); MEAN CORPUSCULAR HGB CONC 32.7 % (33.0-36.5); MEAN CORPUSCULAR VOLUME 88.7 FL (78-98); MEAN PLATELET VOLUME 9.2 FL (7.4-10.4); MONOCYTES # (AUTO) 0.7 X10'3 (0-0.9); NEUTROPHILS # (AUTO) 7.4 X10'3 (1.8-7.7); NEUTROPHILS % (AUTO) 84.1 % (42-75); PLATELET COUNT 228 X10'3 (140-440); RED BLOOD COUNT 3.69 X10'6 (4.70-6.10); RED CELL DISTRIBUTION WIDTH 16.5 % (11.5-14.5); WHITE BLOOD COUNT 8.8 X10'3 (4.5-11.0)
[2018-06-06] MEDS: docusate sod 100mg capsule PO SCH ×2 (07:40→20:00)
[2018-06-06] MEDS: insulin Lispro (HumaLOG) vial - multi-dose SQ SCH ×2 (08:47→14:04)
[2018-06-06] MEDS ORDERED: fentaNYL/PF 50MCG/1 ML 2ML syringe IV PRN (11:00)
[2018-06-06] MEDS: vasopressin inj. 60 UNIT in normal saline 100ml IV soln 97 ML IV SCH (11:00)
[2018-06-06] MEDS ORDERED: LIDOcaine 1%/PF 5ML 10 MG/ML VIAL SQ ONE (11:00)
[2018-06-06] MEDS ORDERED: midazolam 2 mg/2 ml injection IV PRN (11:00)
[2018-06-06] MEDS ORDERED: heparin 1,000 units/ml 10ml inj ICATH ONE (11:00)
[2018-06-06] MEDS ORDERED: midazolam 2 mg/2 ml injection ONE (11:16)
[2018-06-06] MEDS ORDERED: LIDOcaine 1%/PF 5ML 10 MG/ML VIAL ONE ×2 (11:16→11:41)
[2018-06-06] MEDS ORDERED: fentaNYL/PF 50MCG/1 ML 2ML syringe ONE (11:16)
[2018-06-06] MEDS: midodrine tablet 2.5 MG TABLET PO SCH (12:36)
[2018-06-06] MEDS ORDERED: normal saline 1000ml 100 ML IV PRN (14:51)
[2018-06-06] MEDS: citrate dextrose 1000ml IV sol 1,000 ML IV PRN (17:38)
[2018-06-06] MEDS ORDERED: lactulose 20gm/30ml cup PO PRN (19:45)
[2018-06-06] MEDS: insulin glargine (Lantus) pen - multi-dose SQ SCH (20:46)
[2018-06-07] VITALS (24 sets, daily range): BP systolic 66–125; BP diastolic 42–80
[2018-06-07] MEDS: midodrine tablet 2.5 MG TABLET PO SCH ×4 (00:29→15:19)
[2018-06-07] MEDS: pantoprazole 40MG/NS 100ML BAG 100 ML IV SCH ×5 (00:31→21:12)
[2018-06-07 04:59] LABS: BASOPHILS % (AUTO) 0.1 % (0-1); EOSINOPHILS % (AUTO) 0.1 % (0-6); HEMATOCRIT 34.5 % (42.0-52.0); HEMOGLOBIN 11.2 g/dl (14.0-17.9); LYMPHOCYTES # (AUTO) 0.7 X10'3 (1.1-4.8); LYMPHOCYTES % (AUTO) 9.1 % (21-51); MEAN CORPUSCULAR HGB CONC 32.5 % (33.0-36.5); MEAN CORPUSCULAR VOLUME 89.3 FL (78-98); MEAN PLATELET VOLUME 9.1 FL (7.4-10.4); MONOCYTES # (AUTO) 0.8 X10'3 (0-0.9); MONOCYTES % (AUTO) 10.3 % (2-12); NEUTROPHILS # (AUTO) 6.4 X10'3 (1.8-7.7); NEUTROPHILS % (AUTO) 80.4 % (42-75); PLATELET COUNT 192 X10'3 (140-440); RED BLOOD COUNT 3.86 X10'6 (4.70-6.10); RED CELL DISTRIBUTION WIDTH 16.9 % (11.5-14.5); WHITE BLOOD COUNT 7.9 X10'3 (4.5-11.0)
[2018-06-07 05:17] LABS: INR 1.3 INR; PARTIAL THROMBOPLASTIN TIME 34 SECONDS (22-32); PROTHROMBIN TIME 13.4 SECONDS (9.0-12.0)
[2018-06-07 05:24] LABS: ALANINE AMINOTRANSFERASE 15 U/L (12-78); ALBUMIN 2.8 G/DL (3.4-5.0); ALBUMIN/GLOBULIN RATIO 0.7 (1.1-1.5); ALKALINE PHOSPHATASE 119 IU/L (46-116); ANION GAP 24 (8-16); ASPARTATE AMINO TRANSFERASE 21 U/L (10-37); BILIRUBIN,TOTAL 0.8 MG/DL (0.1-1.0); BLOOD UREA NITROGEN 93 MG/DL (7-18); BUN/CREATININE RATIO 11.2 (5.4-32.0); CALCIUM 8.9 MG/DL (8.5-10.1); CHLORIDE 98 MMOL/L (99-107); CREATININE 8.28 MG/DL (0.60-1.10); GLUCOSE 158 MG/DL (70-104); MAGNESIUM 1.9 MG/DL (1.5-2.4); POTASSIUM 3.3 MMOL/L (3.5-5.1); SODIUM 141 MMOL/L (135-145); TOTAL PROTEIN 6.9 G/DL (6.4-8.2); eGFR 6 ML/MIN
[2018-06-07] MEDS: docusate sod 100mg capsule PO SCH ×2 (07:04→20:00)
[2018-06-07] MEDS: ondansetron/PF 4mg/2ml inj IV PRN (07:20)
[2018-06-07] MEDS: insulin Lispro (HumaLOG) vial - multi-dose SQ SCH ×2 (08:47→14:25)
[2018-06-07 09:28] LABS: HEMOGLOBIN A1C 7.8 % (4.5-6.2)
[2018-06-07] MEDS ORDERED: normal saline 1000ml 1,000 ML IVB ONE ×2 (16:16→17:34)
[2018-06-07] MEDS: vasopressin inj. 60 UNIT in normal saline 100ml IV soln 97 ML IV SCH (16:23)
[2018-06-07 18:10] LABS: HEMATOCRIT 32.2 % (42.0-52.0); HEMOGLOBIN 10.4 g/dl (14.0-17.9); MEAN CORPUSCULAR HGB CONC 32.4 % (33.0-36.5); MEAN CORPUSCULAR VOLUME 89.5 FL (78-98); MEAN PLATELET VOLUME 9.2 FL (7.4-10.4); PLATELET COUNT 182 X10'3 (140-440); RED BLOOD COUNT 3.59 X10'6 (4.70-6.10); RED CELL DISTRIBUTION WIDTH 16.9 % (11.5-14.5); WHITE BLOOD COUNT 7.4 X10'3 (4.5-11.0)
[2018-06-07 18:54] LABS: ALANINE AMINOTRANSFERASE 19 U/L (12-78); ALBUMIN 2.6 G/DL (3.4-5.0); ALBUMIN/GLOBULIN RATIO 0.7 (1.1-1.5); ALKALINE PHOSPHATASE 110 IU/L (46-116); ANION GAP 18 (8-16); ASPARTATE AMINO TRANSFERASE 21 U/L (10-37); BILIRUBIN,TOTAL 0.6 MG/DL (0.1-1.0); BLOOD UREA NITROGEN 95 MG/DL (7-18); CHLORIDE 100 MMOL/L (99-107); CREATININE 8.64 MG/DL (0.60-1.10); GLUCOSE 132 MG/DL (70-104); POTASSIUM 3.2 MMOL/L (3.5-5.1); SODIUM 140 MMOL/L (135-145); TOTAL CARBON DIOXIDE 21.9 MMOL/L (24-32); TOTAL PROTEIN 6.4 G/DL (6.4-8.2); eGFR 6 ML/MIN
[2018-06-07 19:26] LABS: ABG BASE EXCESS -9.7 mmol/L (-2.0-3.0); ABG HCO3 15.9 mmol/L (22.0-26.0); ABG OXYGEN SATURATION 95.2 % (95-98); ABG PCO2 (T) 32.9 mmHg (35.0-48.0); ABG PH (T) 7.299 (7.350-7.450); ABG PO2 (T) 86.5 mmHg (83-108); FCOHb 0.3 % (0.5-1.5); FLOW 2 L/min; FMetHb 0.3 % (0.3-1.12); FO2Hb 94.6 % (94-100); PATIENT TEMPERATURE 36.5; RESPIRATORY RATE (OBSERVED) 26 b/min; TOTAL HEMOGLOBIN 11.5 G/dl (14.0-18.0)
[2018-06-07] MEDS: hydrocortisone sod succ/PF 100mg/2ml inj. IV SCH (20:39)
[2018-06-07] MEDS: insulin glargine (Lantus) pen - multi-dose SQ SCH (21:00)
[2018-06-08] VITALS (24 sets, daily range): BP systolic 79–130; BP diastolic 57–83
[2018-06-08] MEDS: hydrocortisone sod succ/PF 100mg/2ml inj. IV SCH ×3 (00:36→19:33)
[2018-06-08] MEDS: pantoprazole 40MG/NS 100ML BAG 100 ML IV SCH ×3 (00:36→09:26)
[2018-06-08 03:08] LABS: BASOPHILS % (AUTO) 0.2 % (0-1); EOSINOPHILS % (AUTO) 0 % (0-6); HEMATOCRIT 33.2 % (42.0-52.0); HEMOGLOBIN 10.7 g/dl (14.0-17.9); LYMPHOCYTES # (AUTO) 0.5 X10'3 (1.1-4.8); LYMPHOCYTES % (AUTO) 5.1 % (21-51); MEAN CORPUSCULAR HGB CONC 32.2 % (33.0-36.5); MEAN PLATELET VOLUME 9.6 FL (7.4-10.4); MONOCYTES # (AUTO) 0.2 X10'3 (0-0.9); MONOCYTES % (AUTO) 2.5 % (2-12); NEUTROPHILS # (AUTO) 9.2 X10'3 (1.8-7.7); NEUTROPHILS % (AUTO) 92.2 % (42-75); PLATELET COUNT 166 X10'3 (140-440); RED BLOOD COUNT 3.69 X10'6 (4.70-6.10)
[2018-06-08 03:26] LABS: ALANINE AMINOTRANSFERASE 42 U/L (12-78); ALBUMIN 2.8 G/DL (3.4-5.0); ALBUMIN/GLOBULIN RATIO 0.7 (1.1-1.5); ALKALINE PHOSPHATASE 152 IU/L (46-116); ANION GAP 25 (8-16); ASPARTATE AMINO TRANSFERASE 70 U/L (10-37); BILIRUBIN,TOTAL 0.8 MG/DL (0.1-1.0); BLOOD UREA NITROGEN 94 MG/DL (7-18); BUN/CREATININE RATIO 10.2 (5.4-32.0); CALCIUM 8.7 MG/DL (8.5-10.1); CHLORIDE 100 MMOL/L (99-107); CREATININE 9.22 MG/DL (0.60-1.10); GLUCOSE 215 MG/DL (70-104); MAGNESIUM 1.9 MG/DL (1.5-2.4); PHOSPHORUS 7.8 MG/DL (2.3-4.5); POTASSIUM 3.7 MMOL/L (3.5-5.1); SODIUM 140 MMOL/L (135-145); TOTAL CARBON DIOXIDE 15.5 MMOL/L (24-32); TOTAL PROTEIN 6.7 G/DL (6.4-8.2); eGFR 6 ML/MIN
[2018-06-08 03:37] LABS: INR 1.5 INR; PARTIAL THROMBOPLASTIN TIME 36 SECONDS (22-32); PROTHROMBIN TIME 14.7 SECONDS (9.0-12.0)
[2018-06-08] MEDS: docusate sod 100mg capsule PO SCH ×2 (06:16→19:26)
[2018-06-08] MEDS: midodrine tablet 2.5 MG TABLET PO SCH ×2 (07:46)
[2018-06-08] MEDS ORDERED: midodrine tablet 2.5 MG TABLET PO ONE (08:45)
[2018-06-08] MEDS ORDERED: NORMAL SALINE IV PRN (08:49)
[2018-06-08] MEDS ORDERED: normal saline 1000ml 250 ML IV PRN (08:49)
[2018-06-08] MEDS: insulin Lispro (HumaLOG) vial - multi-dose SQ SCH ×2 (08:54→13:37)
[2018-06-08] MEDS ORDERED: citrate dextrose 1000ml IV sol 1,000 ML IV PRN (09:55)
[2018-06-08] MEDS ORDERED: midodrine 5mg tablet PO ONE (10:00)
[2018-06-08] MEDS ORDERED: tPA-cathflo 2 MG/2 ml IV flush IVF ONE ×2 (11:10)
[2018-06-08] MEDS: citrate dextrose 1000ml IV sol 1,000 ML IV PRN (15:36)
[2018-06-08] MEDS: midodrine 5mg tablet PO SCH ×2 (16:06→23:48)
[2018-06-08] MEDS: acetaminophen 325mg tablet PO PRN ×2 (19:32→19:37)
[2018-06-08] MEDS: insulin glargine (Lantus) pen - multi-dose SQ SCH (21:00)
[2018-06-08] MEDS: dextrose 50%-water 50ml dispensing syringe IV PRN (21:10)
[2018-06-09] VITALS (24 sets, daily range): BP systolic 101–145; BP diastolic 61–99
[2018-06-09 05:28] LABS: BASOPHILS % (AUTO) 0.2 % (0-1); EOSINOPHILS % (AUTO) 0 % (0-6); HEMATOCRIT 33.9 % (42.0-52.0); HEMOGLOBIN 10.8 g/dl (14.0-17.9); LYMPHOCYTES # (AUTO) 0.7 X10'3 (1.1-4.8); MEAN CORPUSCULAR HEMOGLOBIN 28.6 PG (27.0-31.0); MEAN CORPUSCULAR HGB CONC 31.7 % (33.0-36.5); MEAN CORPUSCULAR VOLUME 90.1 FL (78-98); MEAN PLATELET VOLUME 9.7 FL (7.4-10.4); MONOCYTES # (AUTO) 0.9 X10'3 (0-0.9); MONOCYTES % (AUTO) 7.8 % (2-12); NEUTROPHILS # (AUTO) 10.3 X10'3 (1.8-7.7); PLATELET COUNT 163 X10'3 (140-440); RED BLOOD COUNT 3.77 X10'6 (4.70-6.10); RED CELL DISTRIBUTION WIDTH 17.5 % (11.5-14.5)
[2018-06-09 05:40] LABS: INR 1.9 INR; PARTIAL THROMBOPLASTIN TIME 36 SECONDS (22-32); PROTHROMBIN TIME 18.8 SECONDS (9.0-12.0)
[2018-06-09 05:55] LABS: ALANINE AMINOTRANSFERASE 235 U/L (12-78); ALBUMIN/GLOBULIN RATIO 0.7 (1.1-1.5); ALKALINE PHOSPHATASE 193 IU/L (46-116); ANION GAP 22 (8-16); ASPARTATE AMINO TRANSFERASE 428 U/L (10-37); BLOOD UREA NITROGEN 65 MG/DL (7-18); BUN/CREATININE RATIO 9.5 (5.4-32.0); CALCIUM 8.9 MG/DL (8.5-10.1); CHLORIDE 99 MMOL/L (99-107); CREATININE 6.86 MG/DL (0.60-1.10); GLUCOSE 174 MG/DL (70-104); MAGNESIUM 1.9 MG/DL (1.5-2.4); PHOSPHORUS 6.1 MG/DL (2.3-4.5); POTASSIUM 3.4 MMOL/L (3.5-5.1); SODIUM 141 MMOL/L (135-145); TOTAL CARBON DIOXIDE 20.3 MMOL/L (24-32); TOTAL PROTEIN 7.1 G/DL (6.4-8.2); eGFR 8 ML/MIN
[2018-06-09] MEDS: docusate sod 100mg capsule PO SCH ×2 (07:31→20:00)
[2018-06-09] MEDS: hydrocortisone sod succ/PF 100mg/2ml inj. IV SCH (08:01)
[2018-06-09] MEDS: pantoprazole 40mg Tablet.DR PO SCH (08:01)
[2018-06-09] MEDS: midodrine 5mg tablet PO SCH ×2 (08:01→16:00)
[2018-06-09] MEDS: insulin Lispro (HumaLOG) vial - multi-dose SQ SCH ×2 (09:38→13:33)
[2018-06-09] MEDS: vasopressin inj. 60 UNIT in normal saline 100ml IV soln 97 ML IV SCH (10:30)
[2018-06-09 15:56] LABS: ABG BASE EXCESS -5.1 mmol/L (-2.0-3.0); ABG HCO3 20.8 mmol/L (22.0-26.0); ABG OXYGEN SATURATION 87.5 % (95-98); ABG PH (T) 7.313 (7.350-7.450); ABG PO2 (T) 58.8 mmHg (83-108); FCOHb 0.1 % (0.5-1.5); FMetHb 0.1 % (0.3-1.12); FO2Hb 87.3 % (94-100); RESPIRATORY RATE (OBSERVED) 24 b/min; TOTAL HEMOGLOBIN 12.2 G/dl (14.0-18.0)
[2018-06-09 17:10] LABS: BASOPHILS % (AUTO) 0.3 % (0-1); EOSINOPHILS % (AUTO) 0 % (0-6); HEMATOCRIT 35.5 % (42.0-52.0); HEMOGLOBIN 11.4 g/dl (14.0-17.9); LYMPHOCYTES # (AUTO) 0.7 X10'3 (1.1-4.8); LYMPHOCYTES % (AUTO) 5.5 % (21-51); MEAN CORPUSCULAR VOLUME 90.5 FL (78-98); MEAN PLATELET VOLUME 9.2 FL (7.4-10.4); MONOCYTES # (AUTO) 0.9 X10'3 (0-0.9); MONOCYTES % (AUTO) 7.4 % (2-12); NEUTROPHILS # (AUTO) 11.1 X10'3 (1.8-7.7); NEUTROPHILS % (AUTO) 86.8 % (42-75); PLATELET COUNT 171 X10'3 (140-440); RED BLOOD COUNT 3.93 X10'6 (4.70-6.10); RED CELL DISTRIBUTION WIDTH 16.8 % (11.5-14.5); WHITE BLOOD COUNT 12.8 X10'3 (4.5-11.0)
[2018-06-09 17:25] LABS: ALANINE AMINOTRANSFERASE 351 U/L (12-78); ALBUMIN 3.1 G/DL (3.4-5.0); ALBUMIN/GLOBULIN RATIO 0.8 (1.1-1.5); ALKALINE PHOSPHATASE 252 IU/L (46-116); ANION GAP 16 (8-16); ASPARTATE AMINO TRANSFERASE 549 U/L (10-37); BILIRUBIN,TOTAL 1.1 MG/DL (0.1-1.0); BLOOD UREA NITROGEN 73 MG/DL (7-18); BUN/CREATININE RATIO 9.4 (5.4-32.0); CALCIUM 8.9 MG/DL (8.5-10.1); CHLORIDE 101 MMOL/L (99-107); CREATININE 7.75 MG/DL (0.60-1.10); GLUCOSE 168 MG/DL (70-104); POTASSIUM 3.2 MMOL/L (3.5-5.1); SODIUM 140 MMOL/L (135-145); TOTAL CARBON DIOXIDE 22.6 MMOL/L (24-32); TOTAL PROTEIN 7.1 G/DL (6.4-8.2); eGFR 7 ML/MIN
[2018-06-09] MEDS: piperacillin-tazo 2.25gm/50ml 50 ML IV SCH (20:12)
[2018-06-09] MEDS: insulin glargine (Lantus) pen - multi-dose SQ SCH (20:17)
[2018-06-09] MEDS: ondansetron/PF 4mg/2ml inj IV PRN (23:12)
[2018-06-10] VITALS (21 sets, daily range): BP systolic 94–136; BP diastolic 56–85
[2018-06-10] MEDS: midodrine 5mg tablet PO SCH ×3 (00:14→16:30)
[2018-06-10] MEDS: piperacillin-tazo 2.25gm/50ml 50 ML IV SCH ×4 (02:19→21:48)
[2018-06-10 04:51] LABS: ABG BASE EXCESS -7.9 mmol/L (-2.0-3.0); ABG HCO3 17.7 mmol/L (22.0-26.0); ABG OXYGEN SATURATION 96.5 % (95-98); ABG PCO2 (T) 36.1 mmHg (35.0-48.0); ABG PH (T) 7.306 (7.350-7.450); ABG PO2 (T) 99.4 mmHg (83-108); ALLEN'S TEST Positive; FCOHb 0.3 % (0.5-1.5); FLOW 2 L/min; FMetHb 0.2 % (0.3-1.12); PATIENT TEMPERATURE 36.9; RESPIRATORY RATE (OBSERVED) 20 b/min; TOTAL HEMOGLOBIN 11.9 G/dl (14.0-18.0)
[2018-06-10 05:23] LABS: BASOPHILS % (AUTO) 0 % (0-1); EOSINOPHILS % (AUTO) 0 % (0-6); HEMATOCRIT 34.9 % (42.0-52.0); HEMOGLOBIN 11.3 g/dl (14.0-17.9); LYMPHOCYTES # (AUTO) 0.9 X10'3 (1.1-4.8); LYMPHOCYTES % (AUTO) 7.2 % (21-51); MEAN CORPUSCULAR HEMOGLOBIN 29.3 PG (27.0-31.0); MEAN CORPUSCULAR HGB CONC 32.4 % (33.0-36.5); MEAN CORPUSCULAR VOLUME 90.5 FL (78-98); MEAN PLATELET VOLUME 9.6 FL (7.4-10.4); MONOCYTES # (AUTO) 0.9 X10'3 (0-0.9); MONOCYTES % (AUTO) 7.2 % (2-12); NEUTROPHILS # (AUTO) 10.5 X10'3 (1.8-7.7); NEUTROPHILS % (AUTO) 85.6 % (42-75); PLATELET COUNT 144 X10'3 (140-440); RED BLOOD COUNT 3.86 X10'6 (4.70-6.10); RED CELL DISTRIBUTION WIDTH 17.2 % (11.5-14.5); WHITE BLOOD COUNT 12.3 X10'3 (4.5-11.0)
[2018-06-10 05:34] LABS: ALANINE AMINOTRANSFERASE 278 U/L (12-78); ALBUMIN 2.9 G/DL (3.4-5.0); ALBUMIN/GLOBULIN RATIO 0.8 (1.1-1.5); ALKALINE PHOSPHATASE 221 IU/L (46-116); ANION GAP 22 (8-16); ASPARTATE AMINO TRANSFERASE 295 U/L (10-37); BLOOD UREA NITROGEN 82 MG/DL (7-18); BUN/CREATININE RATIO 10.1 (5.4-32.0); CALCIUM 8.7 MG/DL (8.5-10.1); CHLORIDE 100 MMOL/L (99-107); CREATININE 8.08 MG/DL (0.60-1.10); GLUCOSE 207 MG/DL (70-104); MAGNESIUM 1.9 MG/DL (1.5-2.4); PHOSPHORUS 6.7 MG/DL (2.3-4.5); SODIUM 143 MMOL/L (135-145); TOTAL CARBON DIOXIDE 21.3 MMOL/L (24-32); TOTAL PROTEIN 6.6 G/DL (6.4-8.2); eGFR 7 ML/MIN
[2018-06-10 05:47] LABS: PROTHROMBIN TIME 18.2 SECONDS (9.0-12.0)
[2018-06-10 05:48] LABS: INR 1.9 INR; PARTIAL THROMBOPLASTIN TIME 39 SECONDS (22-32)
[2018-06-10] MEDS: docusate sod 100mg capsule PO SCH ×2 (06:58→20:00)
[2018-06-10 07:07] LABS: HBSAG SCREEN Negative (Negative)
[2018-06-10] MEDS: hydrocortisone sod succ/PF 100mg/2ml inj. IV SCH (07:16)
[2018-06-10] MEDS: pantoprazole 40mg Tablet.DR PO SCH (07:16)
[2018-06-10] MEDS: insulin Lispro (HumaLOG) vial - multi-dose SQ SCH ×2 (09:21→13:59)
[2018-06-10] MEDS: lactobacillus rhamnosus 10,000 MMU CELLS/CAPSULE PO SCH (20:00)
[2018-06-10] MEDS: insulin glargine (Lantus) pen - multi-dose SQ SCH (20:14)
[2018-06-10 21:11] LABS: ABG BASE EXCESS -6.5 mmol/L (-2.0-3.0); ABG HCO3 18.5 mmol/L (22.0-26.0); ABG OXYGEN SATURATION 97.6 % (95-98); ABG PCO2 (T) 34.5 mmHg (35.0-48.0); ABG PH (T) 7.345 (7.350-7.450); ABG PO2 (T) 107.2 mmHg (83-108); FCOHb 0.1 % (0.5-1.5); FLOW 2 L/min; FMetHb 0.1 % (0.3-1.12); FO2Hb 97.4 % (94-100); PATIENT TEMPERATURE 36.6; RESPIRATORY RATE (OBSERVED) 24 b/min; TOTAL HEMOGLOBIN 12.4 G/dl (14.0-18.0)
[2018-06-10 21:56] LABS: ALBUMIN 2.9 G/DL (3.4-5.0); ANION GAP 19 (8-16); BLOOD UREA NITROGEN 91 MG/DL (7-18); BUN/CREATININE RATIO 10.1 (5.4-32.0); CALCIUM 8.7 MG/DL (8.5-10.1); CHLORIDE 101 MMOL/L (99-107); CREATININE 8.98 MG/DL (0.60-1.10); GLUCOSE 112 MG/DL (70-104); SODIUM 140 MMOL/L (135-145); TOTAL CARBON DIOXIDE 20.4 MMOL/L (24-32); eGFR 6 ML/MIN
[2018-06-11] MEDS: midodrine 5mg tablet PO SCH ×3 (00:24→17:19)
[2018-06-11] MEDS: piperacillin-tazo 2.25gm/50ml 50 ML IV SCH ×4 (02:50→19:10)
[2018-06-11 02:55] VITALS: BP 141/82
[2018-06-11 05:54] LABS: BASOPHILS % (AUTO) 0.1 % (0-1); EOSINOPHILS # (AUTO) 0.1 X10'3 (0-0.9); EOSINOPHILS % (AUTO) 1.1 % (0-6); HEMATOCRIT 35.2 % (42.0-52.0); HEMOGLOBIN 11.4 g/dl (14.0-17.9); LYMPHOCYTES # (AUTO) 0.9 X10'3 (1.1-4.8); LYMPHOCYTES % (AUTO) 7.3 % (21-51); MEAN CORPUSCULAR HEMOGLOBIN 29.2 PG (27.0-31.0); MEAN CORPUSCULAR HGB CONC 32.4 % (33.0-36.5); MEAN PLATELET VOLUME 9.8 FL (7.4-10.4); MONOCYTES # (AUTO) 0.8 X10'3 (0-0.9); MONOCYTES % (AUTO) 6.9 % (2-12); NEUTROPHILS # (AUTO) 10.4 X10'3 (1.8-7.7); NEUTROPHILS % (AUTO) 84.6 % (42-75); PLATELET COUNT 117 X10'3 (140-440); RED BLOOD COUNT 3.91 X10'6 (4.70-6.10); RED CELL DISTRIBUTION WIDTH 17.5 % (11.5-14.5); WHITE BLOOD COUNT 12.3 X10'3 (4.5-11.0)
[2018-06-11 06:00] VITALS: BP 136/84
[2018-06-11 06:04] LABS: INR 1.7 INR; PARTIAL THROMBOPLASTIN TIME 38 SECONDS (22-32); PROTHROMBIN TIME 16.9 SECONDS (9.0-12.0)
[2018-06-11 06:13] LABS: ALANINE AMINOTRANSFERASE 181 U/L (12-78); ALBUMIN 2.6 G/DL (3.4-5.0); ALBUMIN/GLOBULIN RATIO 0.7 (1.1-1.5); ALKALINE PHOSPHATASE 192 IU/L (46-116); ANION GAP 23 (8-16); ASPARTATE AMINO TRANSFERASE 124 U/L (10-37); BILIRUBIN,TOTAL 0.9 MG/DL (0.1-1.0); BLOOD UREA NITROGEN 95 MG/DL (7-18); BUN/CREATININE RATIO 10.1 (5.4-32.0); CALCIUM 8.6 MG/DL (8.5-10.1); CHLORIDE 100 MMOL/L (99-107); CREATININE 9.37 MG/DL (0.60-1.10); GLUCOSE 113 MG/DL (70-104); MAGNESIUM 1.9 MG/DL (1.5-2.4); PHOSPHORUS 6.5 MG/DL (2.3-4.5); SODIUM 141 MMOL/L (135-145); TOTAL CARBON DIOXIDE 18.5 MMOL/L (24-32); TOTAL PROTEIN 6.5 G/DL (6.4-8.2); eGFR 6 ML/MIN
[2018-06-11 06:15] LABS: POTASSIUM 2.8 MMOL/L (3.5-5.1)
[2018-06-11] MEDS ORDERED: Potassium Cl inj 40 MEQ in normal saline 500ml IV soln 480 ML IV ONE (06:25)
[2018-06-11] MEDS: pantoprazole 40mg Tablet.DR PO SCH (06:55)
[2018-06-11] MEDS: dextrose 50%-water 50ml dispensing syringe IV PRN (07:37)
[2018-06-11] MEDS ORDERED: epoetin 20,000 units/ml inj IV ONE (08:00)
[2018-06-11] MEDS ORDERED: heparin 1,000 units/ml 10ml inj HE ONE ×2 (08:00)
[2018-06-11] MEDS ORDERED: normal saline 1000ml 100 ML IV PRN (08:00)
[2018-06-11] MEDS ORDERED: normal saline 1000ml 250 ML IV PRN (08:00)
[2018-06-11] MEDS: docusate sod 100mg capsule PO SCH ×2 (08:00→20:00)
[2018-06-11] MEDS: lactobacillus rhamnosus 10,000 MMU CELLS/CAPSULE PO SCH ×2 (08:15→19:10)
[2018-06-11] MEDS: hydrocortisone sod succ/PF 100mg/2ml inj. IV SCH (08:18)
[2018-06-11] MEDS ORDERED: normal saline 1000ml 1,000 ML IV SCH (08:46)
[2018-06-11] MEDS ORDERED: LIDOcaine 1%/PF 5ML 10 MG/ML VIAL ONE (08:49)
[2018-06-11] MEDS ORDERED: iohexol 300mg/ml 100ml inj. ONE (08:50)
[2018-06-11] MEDS ORDERED: LIDOcaine 1%/PF 5ML 10 MG/ML VIAL SQ ONE (08:50)
[2018-06-11] MEDS ORDERED: fentaNYL/PF 50MCG/1 ML 2ML syringe IV PRN (08:50)
[2018-06-11] MEDS ORDERED: iohexol 300 MG/1 ML 50ml polymer ONE (08:50)
[2018-06-11] MEDS ORDERED: midazolam 2 mg/2 ml injection IV PRN (08:50)
[2018-06-11] MEDS ORDERED: diphenhydrAMINE 50 mg/ml inj ONE (09:28)
[2018-06-11] MEDS ORDERED: midazolam 2 mg/2 ml injection ONE (09:28)
[2018-06-11] MEDS ORDERED: heparin 1,000 UNITS/NS 500ml 500 ML ONE (09:29)
[2018-06-11] MEDS ORDERED: fentaNYL/PF 50MCG/1 ML 2ML syringe ONE (09:29)
[2018-06-11] MEDS: vasopressin inj. 60 UNIT in normal saline 100ml IV soln 97 ML IV SCH (10:30)
[2018-06-11 11:00] VITALS: BP 132/56
[2018-06-11 15:00] VITALS: BP 119/52
[2018-06-11] MEDS ORDERED: tPA-cathflo 2 MG/2 ml IV flush IVF ONE ×2 (15:35)
[2018-06-11 18:00] VITALS: BP 149/88
[2018-06-11] MEDS: lactose-reduced food (Ensure High Protein) 237ml bottle PO SCH (18:00)
[2018-06-11] MEDS: insulin Lispro (HumaLOG) vial - multi-dose SQ SCH ×2 (19:22→19:29)
[2018-06-11] MEDS: insulin glargine (Lantus) pen - multi-dose SQ SCH (21:19)
[2018-06-11 22:00] VITALS: BP 139/93
[2018-06-12] VITALS (9 sets, daily range): BP systolic 92–143; BP diastolic 57–93
[2018-06-12] MEDS: midodrine 5mg tablet PO SCH ×3 (00:06→16:00)
[2018-06-12] MEDS: piperacillin-tazo 2.25gm/50ml 50 ML IV SCH ×4 (01:06→20:33)
[2018-06-12] MEDS: pantoprazole 40mg Tablet.DR PO SCH (07:30)
[2018-06-12] MEDS: lactose-reduced food (Ensure High Protein) 237ml bottle PO SCH ×3 (08:00→18:00)
[2018-06-12] MEDS ORDERED: pantoprazole 40 MG vial IV SCH (08:00)
[2018-06-12] MEDS: docusate sod 100mg capsule PO SCH ×2 (08:00→20:00)
[2018-06-12] MEDS ORDERED: K, MAG and/or Phos replacement - Verify level? MC SCH (08:00)
[2018-06-12] MEDS: lactobacillus rhamnosus 10,000 MMU CELLS/CAPSULE PO SCH ×2 (08:58→20:00)
[2018-06-12] MEDS ORDERED: calcium chloride 100 MG/1 ML inj IV ONE (09:00)
[2018-06-12] MEDS ORDERED: atropine 0.1mg/ml 10ml syringe ONE (09:00)
[2018-06-12] MEDS ORDERED: ePHEDrine 50MG/ML INJ. ONE (09:00)
[2018-06-12 09:54] LABS: BASOPHILS % (AUTO) 0.1 % (0-1); EOSINOPHILS # (AUTO) 0.3 X10'3 (0-0.9); EOSINOPHILS % (AUTO) 1.7 % (0-6); HEMATOCRIT 36.3 % (42.0-52.0); HEMOGLOBIN 11.8 g/dl (14.0-17.9); LYMPHOCYTES # (AUTO) 1.2 X10'3 (1.1-4.8); LYMPHOCYTES % (AUTO) 7.4 % (21-51); MEAN CORPUSCULAR HEMOGLOBIN 29.3 PG (27.0-31.0); MEAN CORPUSCULAR HGB CONC 32.5 % (33.0-36.5); MEAN CORPUSCULAR VOLUME 90.2 FL (78-98); MONOCYTES # (AUTO) 1.2 X10'3 (0-0.9); MONOCYTES % (AUTO) 7.5 % (2-12); NEUTROPHILS # (AUTO) 13.1 X10'3 (1.8-7.7); NEUTROPHILS % (AUTO) 83.3 % (42-75); PLATELET COUNT 103 X10'3 (140-440); RED BLOOD COUNT 4.03 X10'6 (4.70-6.10); RED CELL DISTRIBUTION WIDTH 17.9 % (11.5-14.5); WHITE BLOOD COUNT 15.8 X10'3 (4.5-11.0)
[2018-06-12 09:55] LABS: INR 1.8 INR; PARTIAL THROMBOPLASTIN TIME 38 SECONDS (22-32); PROTHROMBIN TIME 17.4 SECONDS (9.0-12.0)
[2018-06-12 10:02] LABS: ALANINE AMINOTRANSFERASE 214 U/L (12-78); ALBUMIN 2.7 G/DL (3.4-5.0); ALBUMIN/GLOBULIN RATIO 0.7 (1.1-1.5); ALKALINE PHOSPHATASE 177 IU/L (46-116); ANION GAP 24 (8-16); ASPARTATE AMINO TRANSFERASE 214 U/L (10-37); BLOOD UREA NITROGEN 109 MG/DL (7-18); BUN/CREATININE RATIO 10.3 (5.4-32.0); CALCIUM 8.9 MG/DL (8.5-10.1); CHLORIDE 101 MMOL/L (99-107); CREATININE 10.61 MG/DL (0.60-1.10); GLUCOSE 191 MG/DL (70-104); MAGNESIUM 2.1 MG/DL (1.5-2.4); PHOSPHORUS 8.1 MG/DL (2.3-4.5); POTASSIUM 3.5 MMOL/L (3.5-5.1); SODIUM 143 MMOL/L (135-145); TOTAL CARBON DIOXIDE 17.8 MMOL/L (24-32); TOTAL PROTEIN 6.7 G/DL (6.4-8.2); eGFR 5 ML/MIN
[2018-06-12] MEDS ORDERED: amiodarone/D5 360MG/200ML BAG 200 ML IV ONE ×2 (15:08→20:07)
[2018-06-12 15:11] LABS: ABG BASE EXCESS -23.2 mmol/L (-2.0-3.0); ABG HCO3 6.1 mmol/L (22.0-26.0); ABG OXYGEN SATURATION 99.2 % (95-98); ABG PCO2 (T) 23.6 mmHg (35.0-48.0); ABG PH (T) 7.031 (7.350-7.450); ABG PO2 (T) 293.3 mmHg (83-108); FCOHb 0.3 % (0.5-1.5); FLOW 15 L/min; FMetHb 0.2 % (0.3-1.12); FO2Hb 98.7 % (94-100); TOTAL HEMOGLOBIN 12.3 G/dl (14.0-18.0)
[2018-06-12] MEDS ORDERED: amiodarone 50MG/ML inj IV ONE (15:11)
[2018-06-12 15:18] LABS: ALANINE AMINOTRANSFERASE 225 U/L (12-78); ALBUMIN 2.9 G/DL (3.4-5.0); ALBUMIN/GLOBULIN RATIO 0.8 (1.1-1.5); ALKALINE PHOSPHATASE 199 IU/L (46-116); ANION GAP 27 (8-16); ASPARTATE AMINO TRANSFERASE 279 U/L (10-37); BILIRUBIN,TOTAL 1.2 MG/DL (0.1-1.0); BLOOD UREA NITROGEN 67 MG/DL (7-18); BUN/CREATININE RATIO 9.3 (5.4-32.0); CALCIUM 8.7 MG/DL (8.5-10.1); CHLORIDE 99 MMOL/L (99-107); CREATININE 7.23 MG/DL (0.60-1.10); GLUCOSE 168 MG/DL (70-104); SODIUM 138 MMOL/L (135-145); TOTAL PROTEIN 6.7 G/DL (6.4-8.2); eGFR 7 ML/MIN
[2018-06-12 15:20] LABS: POTASSIUM 5.5 MMOL/L (3.5-5.1)
[2018-06-12 15:21] LABS: TOTAL CARBON DIOXIDE 12.3 MMOL/L (24-32)
[2018-06-12] MEDS ORDERED: aspirin 325mg tablet ONE (15:32)
[2018-06-12] MEDS ORDERED: magnesium hydroxide 30ml (MOM) UD suspension PO PRN (15:45)
[2018-06-12] MEDS ORDERED: bisacodyl 10mg suppository rectal RC PRN (15:45)
[2018-06-12] MEDS ORDERED: magnesium Cl slow-release 64mg tablet PO PRN (15:45)
[2018-06-12] MEDS ORDERED: magnesium 4gm in 100ml NS 100 ML IV PRN (15:45)
[2018-06-12] MEDS ORDERED: sodium phosphate inj. 30 MMOL in dextrose 5%-water 250 ML IV PRN (15:45)
[2018-06-12] MEDS ORDERED: ondansetron/PF 4mg/2ml inj IV PRN (15:45)
[2018-06-12] MEDS ORDERED: acetaminophen 325mg tablet PO PRN ×2 (15:45)
[2018-06-12] MEDS ORDERED: sodium phosphate inj. 15 MMOL in dextrose 5%-water 150 ML IV PRN (15:45)
[2018-06-12] MEDS ORDERED: Neutra Phos packet PO PRN (15:45)
[2018-06-12] MEDS ORDERED: EPICAL 5MG & 1000MG PER 250ML INFUSION IV PRN ×3 (15:55)
[2018-06-12] MEDS ORDERED: epiNEPHrine inj 5 MG, calcium chloride inj. 1,000 MG in normal saline 250ml IV soln 235 ML IV PRN (16:35)
[2018-06-12] MEDS: NORepinephrine 8mg/ 250ml NS 250 ML IV SCH ×3 (16:53→20:34)
[2018-06-12] MEDS ORDERED: mineral oil/petrolatum ophthal oint EACHEYE PRN (17:05)
[2018-06-12] MEDS ORDERED: amiodarone/D5 360MG/200ML BAG 200 ML IV SCH (20:15)
[2018-06-12] MEDS: insulin glargine (Lantus) pen - multi-dose SQ SCH (21:00)
[2018-06-13] VITALS: BP 110/84
[2018-06-13] MEDS: midodrine 5mg tablet PO SCH
[2018-06-13 00:30] VITALS: BP 98/70
[2018-06-13 01:00] VITALS: BP 70/30
== END 2018-06-13 05:30 | disposition expired | DRG 377 ==
LOC: ER 14:17 → ED HOLD 19:44 → CMPBEDREQ 21:18 → CICU 2S 21:29 → PCU 3S 06-10 17:05 → ICU 2S 06-12 14:47
PROC: 30233N1 Transfusion of Nonautologous Red Blood Cells into Peripheral Vein, Percutaneous Approach (ICD-10-PCS; 2018-06-04)
PROC: 0D9670Z Drainage of Stomach with Drainage Device, Via Natural or Artificial Opening (ICD-10-PCS; 2018-06-04)
PROC: 30233N1 Transfusion of Nonautologous Red Blood Cells into Peripheral Vein, Percutaneous Approach (ICD-10-PCS; principal; 2018-06-05)
PROC: 5A1D70Z Performance of Urinary Filtration, Intermittent, Less than 6 Hours Per Day (ICD-10-PCS; 2018-06-05)
PROC: 0DJ08ZZ Inspection of Upper Intestinal Tract, Via Natural or Artificial Opening Endoscopic (ICD-10-PCS; 2018-06-05)
PROC: 5A1D70Z Performance of Urinary Filtration, Intermittent, Less than 6 Hours Per Day (ICD-10-PCS; 2018-06-06)
PROC: 0JHM3XZ Insertion of Tunneled Vascular Access Device into Left Upper Leg Subcutaneous Tissue and Fascia, Percutaneous Approach (ICD-10-PCS; 2018-06-06)
PROC: 06H033Z Insertion of Infusion Device into Inferior Vena Cava, Percutaneous Approach (ICD-10-PCS; 2018-06-06)
PROC: B5191ZA Fluoroscopy of Inferior Vena Cava using Low Osmolar Contrast, Guidance (ICD-10-PCS; 2018-06-06)
PROC: 5A1D70Z Performance of Urinary Filtration, Intermittent, Less than 6 Hours Per Day (ICD-10-PCS; 2018-06-08)
PROC: 5A1935Z Respiratory Ventilation, Less than 24 Consecutive Hours (ICD-10-PCS; 2018-06-12)
PROC: 5A1D70Z Performance of Urinary Filtration, Intermittent, Less than 6 Hours Per Day (ICD-10-PCS; 2018-06-12)
PROC: 0BH18EZ Insertion of Endotracheal Airway into Trachea, Via Natural or Artificial Opening Endoscopic (ICD-10-PCS; 2018-06-12)
PROC: 5A12012 Performance of Cardiac Output, Single, Manual (ICD-10-PCS; 2018-06-12)
DX: K25.4 Chronic or unspecified gastric ulcer with hemorrhage (principal); J69.0 Pneumonitis due to inhalation of food and vomit; G93.41 Metabolic encephalopathy; N18.6 End stage renal disease; I21.9 Acute myocardial infarction, unspecified; I13.11 Hypertensive heart and chronic kidney disease without heart failure, with stage 5 chronic kidney disease, or end stage renal disease; T82.868A Thrombosis due to vascular prosthetic devices, implants and grafts, initial encounter; K22.10 Ulcer of esophagus without bleeding; E72.20 Disorder of urea cycle metabolism, unspecified; I47.2 Ventricular tachycardia; E87.2 Acidosis; E11.22 Type 2 diabetes mellitus with diabetic chronic kidney disease; E11.51 Type 2 diabetes mellitus with diabetic peripheral angiopathy without gangrene; E78.00 Pure hypercholesterolemia, unspecified; I95.9 Hypotension, unspecified; E78.5 Hyperlipidemia, unspecified; E86.1 Hypovolemia; Y82.8 Other medical devices associated with adverse incidents; D64.9 Anemia, unspecified; G47.30 Sleep apnea, unspecified; I25.10 Atherosclerotic heart disease of native coronary artery without angina pectoris; J44.9 Chronic obstructive pulmonary disease, unspecified; L89.159 Pressure ulcer of sacral region, unspecified stage; Z66 Do not resuscitate; I46.9 Cardiac arrest, cause unspecified; Z99.2 Dependence on renal dialysis; I25.2 Old myocardial infarction; Z89.611 Acquired absence of right leg above knee; Z89.612 Acquired absence of left leg above knee; Z95.5 Presence of coronary angioplasty implant and graft; Z88.8 Allergy status to other drugs, medicaments and biological substances; Z88.1 Allergy status to other antibiotic agents; Z91.041 Radiographic dye allergy status; Z79.4 Long term (current) use of insulin; Z79.82 Long term (current) use of aspirin; Z79.899 Other long term (current) drug therapy; Z86.711 Personal history of pulmonary embolism; Z82.49 Family history of ischemic heart disease and other diseases of the circulatory system; Y92.89 Other specified places as the place of occurrence of the external cause
CPT/HCPCS: 36415; 36430; 36558; 36600; 70450; 71045; 76937; 77001; 80048; 80053; 82140; 82803; 82948; 83036; 83605; 83735; 83880; 84100; 84145; 84443; 85018; 85025; 85027; 85610; 85730; 86677; 86885; 86900; 86901; 86920; 87040; 87070; 87340; 93005; 94002; 94760; 96374; 96375; 99152; 99291; C1750; C1769; C1894; C9113; G0257; G0378; J0171; J0282; J0461; J0885; J1200; J1644; J1720; J1815; J2001; J2150; J2250; J2354; J2405; J2543; J2597; J2997; J3010; J3480; J3490; J7030; P9016; P9047; Q9967